=== PATIENT | male | born 1970 | race Caucasian/White ===

== ENCOUNTER 2022-11-17 20:46 | Inpatient (IN) | payer MEDICAID, SELFPAY ==
[2022-11-17] VITALS (23 sets, daily range): BP systolic 141–174; BP diastolic 100–125; PULSE 81–114; RESP 16; TEMP 36.7; O2SAT 95–99; BMI 27.1
--- NOTE | 2022-11-17 20:59 | CT_ITS ---
Final Report Patient: HARPAL CLARKE Facility:?[facility] Patient ID:?[id number] Site Patient ID:?[id number]. Site :?[id number] Study:?CT Head Angio w/ 95cc [id number]/27/2023 9:46:31 PM Ordering Physician:?Kortney Arceo Final Report: INDICATION: Acute stroke, dysarthria, altered mental status. TECHNIQUE: CTA head with contrast bolus tracking and 3D MIP reconstruction. FINDINGS: There is normal opacification of the intracranial vasculature. There is no large vessel occlusion. No aneurysm is identified. IMPRESSION: Unremarkable head CTA. Please note that all CT scans at this facility use dose modulation, iterative reconstruction, and/or weight-based dosing when appropriate to reduce radiation dose to as low as reasonably achievable. Dictated by Jayson Baez MD @ 11/18/2022 7:30:41 AM (Electronic Signature)
--- NOTE | 2022-11-17 20:59 | CRLHL7_ITS ---
For Patients: As a result of the Century Cures Act, medical imaging exams and procedure reports are released immediately into your electronic medical record. You may view this report before your referring provider. If you have questions, please contact your health care provider. INDICATION: Acute stroke, dysarthria, altered mental status. TECHNIQUE: CTA neck with contrast bolus tracking and 3D MIP reconstruction. FINDINGS: There is no significant carotid artery stenosis or dissection. There is no significant vertebral artery stenosis or dissection. The soft tissues of the neck are within normal limits. The cervical spine is in normal alignment. Degenerative changes are noted in the cervical spine. IMPRESSION: No significant carotid or vertebral artery stenosis or dissection. Please note that all CT scans at this facility use dose modulation, iterative reconstruction, and/or weight-based dosing when appropriate to reduce radiation dose to as low as reasonably achievable. Dictated by Jayson Baez MD @ 11/18/2022 7:31:16 AM (Electronically Signed)
--- NOTE | 2022-11-17 20:59 | CRLHL7_ITS ---
For Patients: As a result of the Century Cures Act, medical imaging exams and procedure reports are released immediately into your electronic medical record. You may view this report before your referring provider. If you have questions, please contact your health care provider. INDICATION: Dysarthria over the past several days. Altered mental status. COMPARISON: None available. TECHNIQUE: CT examination of the head was performed with 3 mm thick axial and 2 mm thick coronal and sagittal sections without intravenous contrast. Images were obtained from the vertex of the skull through the skull base, and I examined the images with the brain and bone windows. Please note that all CT scans at this facility use dose modulation, iterative reconstruction, and/or weight-based dosing when appropriate to reduce radiation dose to as low as reasonably achievable. FINDINGS: : There is a relatively well-defined area of edema in the left mid-anterior parietal cortex and subcortical white matter, without evidence of hemorrhage or mass effect, consistent with an acute or subacute small left high mid-anterior MCA infarct. There is no sign of any high-density in the associated left MCA. There is an old lacunar infarct in the anterior medial right thalamus. Another old lacunar infarct is seen in the anterior lateral left thalamus. Old lacunar infarction is seen in the anterior limb of the internal capsule on the left. There is moderate dilatation of the ventricles and sulci representing moderate, age-appropriate atrophy. The cortical atrophy is quite pronounced in the posterior superior parietal lobes, raising the possibility of posterior cortical atrophy. The rest of the brain is normal in appearance for the patient`s age on today`s study, with no sign of mass lesion, mass effect, hemorrhage, or additional edema. Incidental note is made of a partially empty sella, a common finding in a patient of this age. The visualized portions of the orbits are normal in appearance. The visualized portions of the paranasal sinuses and mastoids are clear. The osseous structures are normal in their appearance with no sign of abnormality in the skull base or calvarium. I discussed findings of small acute versus subacute infarct in the left MCA territory with Dr. Sheets at 2151 hours on 11/17/2022. IMPRESSION: Acute or subacute small left distal mid-anterior MCA infarct with no sign of hemorrhage or mass effect. Several old lacunar infarcts as described above. Moderate cerebral atrophy, with pronounced atrophy in the posterior parietal regions, raising the possibility of posterior cortical atrophy. Please note that all CT scans at this facility use dose modulation, iterative reconstruction, and/or weight-based dosing when appropriate to reduce radiation dose to as low as reasonably achievable. Dictated by Nestor Sanders MD @ 11/17/2022 9:54:17 PM (Electronically Signed)
[2022-11-17 21:07] LABS: HCO3 VBG 29 mmol/L (21-28); PCO2 VBG 51 mmHG (40-50); PO2 VBG 33.1 mmHG (25-47); pH VBG 7.355 (7.32-7.43)
[2022-11-17 21:09] LABS: Basophils Absolute Auto 0.02 K/uL (0.00-0.30); Basophils Percent Auto 0.2 % (0.0-3.0); Eosinophils Absolute Auto 0.13 K/uL (0.00-0.50); Eosinophils Percent Auto 1.2 % (0.0-7.0); Hematocrit 50.7 % (37.0-53.0); Hemoglobin* 16.7 gm/dL (13.5-17.5); Immature Granulocytes Abs Auto 0.02 K/uL (0.00-0.30); Immature Granulocytes Pct Auto 0.2 %; Lymphocytes Absolute Auto 3.14 K/uL (0.90-2.90); Lymphocytes Percent Auto 29.7 % (20-44); Mean Corpuscular HGB Conc 33 gm/dL (32-36); Mean Corpuscular Hemoglobin 30 pg (26-34); Mean Corpuscular Volume 91 fL (80-100); Monocytes Percent Auto 9.9 % (0.0-11.0); Neutrophils Absolute Auto 6.22 K/uL (1.7-7.0); Neutrophils Percent Auto 58.8 % (42.0-72.0); Platelet Count* 281 K/uL (140-440); RDW Coefficient of Variation % 12.7 % (11.5-15.5); Red Blood Count 5.56 m/uL (4.30-5.90); Slide Review Reflex No; White Blood Count* 10.58 K/uL (4.50-11.00)
[2022-11-17 21:24] LABS: Albumin* 4.4 g/dL (3.3-5.0); Chloride* 104 mmol/L (96-114)
[2022-11-17 21:25] LABS: Sodium* 138 mmol/L (135-149)
[2022-11-17 21:26] LABS: Potassium* 3.9 mmol/L (3.6-5.1)
[2022-11-17 21:27] LABS: Est. Creatinine Clearance* 95.92; Estimated Glomerular Filt Rate 91 ml/min
[2022-11-17 21:28] LABS: Alanine Aminotransferase* 27 U/L (4-50); Alkaline Phosphatase* 68 U/L (40-150); Aspartate Amino Transferase* 26 U/L (12-35); Bilirubin Direct* 0.3 mg/dL (0.0-0.5); Bilirubin Total* 0.5 mg/dL (0.1-1.5); Blood Urea Nitrogen* 17 mg/dL (7-30); Carbon Dioxide* 27 mmol/L (20-32); Glucose* 138 mg/dL (60-115); Total Protein* 7.8 g/dL (6.0-8.3)
[2022-11-17 21:29] LABS: Calcium* 9.4 mg/dL (8.4-10.6); Ethanol* < 0.01 % (0.01-0.03); Magnesium* 2.1 mg/dL (1.5-2.6)
[2022-11-17 21:31] LABS: C Reactive Protein* 0.7 mg/dL (0.5-1.0)
[2022-11-17 21:38] LABS: D Dimer Quantitative* 0.46 ug/ml (0.00-0.50)
[2022-11-17 21:44] LABS: NT Pro B Type NatriureticPept* 59 pg/mL; Troponin I* < 0.01 ng/mL (0.01-0.04)
[2022-11-17] MEDS: 0.9 % SODIUM CHLORIDE 1000 ml 1,000 ML IV (22:13)
--- NOTE | 2022-11-17 22:26 | ED.NURSE ---
Stroke neurology was paged through [employer]. Dr. Faust to phone back.
[2022-11-17 22:42] LABS: SARS PCR* Negative SARS-CoV-2 (Negative)
--- NOTE | 2022-11-17 22:46 | ED.GENADULT ---
HPI - General Adult General Chief complaint: Unspecified Complaint, Adult Stated complaint: Confused Trouble Speaking Time Seen by Provider: 11/17/22 20:58 History of Present Illness HPI narrative: 51-year-old man presenting to the emergency department accompanied by family with concern of decreased communication over the last probably 30 hours. Stroke code is activated on arrival here in the ER. There has been increased stress with family activities and at some point family they left him yesterday thinking that this was playing a role in how he was feeling as well as a flare of his sciatica. Concern was expressed that he was upset with family not communicating with them. Returned to find him leaning over maybe slumped on the couch. Mr. Rashid does not elaborate much on his symptoms with clear difficulty with communication. Is demonstrating some degree of expressive aphasia and/or dysarthria on arrival. He is denying any pain other than acknowledging back/leg pain. No recent trauma. He does smoke. Denies other ingestions. No fever. ?we don't go to doctors? as phrased by family. He has however had a left hip replacement and is to follow-up for that. Related Data Home Medications Medication Instructions Recorded Confirmed ibuprofen 100 - 200 mg PO Q8H PRN 11/17/22 11/18/22 Allergies Allergy/AdvReac Type Severity Reaction Status Date / Time No Known Drug Allergies Allergy Verified 11/17/22 21:53 Review of Systems Status of ROS: Reports: 6 or more systems reviewed and unremarkable except as noted in History and below PFSH FOR[facility] Medical History Cigarette smoker one half pack a day or less ?F17.210 - Nicotine dependence, cigarettes, uncomplicated (ICD-10) History of lacunar cerebrovascular accident ?Z86.73 - Personal history of transient ischemic attack (TIA), and cerebral infarction without residual deficits (ICD-10) Osteoarthritis ?M19.90 - Unspecified osteoarthritis, unspecified site (ICD-10) Surgical History History of hip replacement, total ?Z96.649 - Presence of unspecified artificial hip joint (ICD-10) Social History Highest level of school completed/degree received: 12th grade, no diploma Smoking Status: Current every day smoker What tobacco products do you use: cigarettes Smoking packs per day: 0.5 Smoking cigarettes per day: 10.0 Years smoked: 30 Smoking pack-years: 15.00 Do you use any of these nicotine containing products: None Second hand tobacco smoke exposure: No How often do you have a drink containing alcohol: never AUDIT-C Alcohol total score: 0 Non-prescribed substance use: marijuana (any form) Caffeine: Yes service: No Exam Narrative: Exam Narrative: Quiet. NAD. GCS 15. Breathing easily, supporting own airway. Smells strongly of cigarette smoke. He does appear little slowed in communication. There is subtle dysarthria and certainly some degree of expressive aphasia. Able to follow commands without difficulty. NIH stroke scale I would estimate to be 2. Cranial nerves 2-12 otherwise appear to be intact. No sensory loss evident. Seems to prefer to gaze down to the left but clearly not exclusive. Oropharynx is little sticky, hyperemic. He is moving all extremities without difficulty. Well perfused. Head is atraumatic. Neck is supple nontender. Back nontender without deformity. Heart with elevated rate but in a regular rhythm. Abdomen is soft and nontender. Skin warm and dry without evidence of injury or rash. Const: Vital Signs, click to edit/add: Vital Signs - 24 hr 11/17/22 20:50 11/17/22 20:47 11/17/22 20:58 Temperature 98.1 F Pulse Rate Pulse Rate [Left R adial] 100 Pulse Rate [Pulse Oximeter] 109 H Respiratory Rate 16 Blood Pressure Blood Pressure [Le ft Upper Arm] 174/125 H Blood Pressure [Ri ght Arm] Pulse Oximetry 98 96 Oxygen Delivery Me thod Room Air 11/17/22 20:58 11/17/22 20:59 11/17/22 21:01 Temperature Pulse Rate 112 H 112 H 114 H Pulse Rate [Left R adial] Pulse Rate [Pulse Oximeter] Respiratory Rate Blood Pressure 165/106 H 159/102 H Blood Pressure [Le ft Upper Arm] Blood Pressure [Ri ght Arm] Pulse Oximetry 97 97 97 Oxygen Delivery Me thod 11/17/22 21:02 11/17/22 21:35 11/17/22 21:38 Temperature Pulse Rate 113 H 97 99 Pulse Rate [Left R adial] Pulse Rate [Pulse Oximeter] Respiratory Rate Blood Pressure 155/111 H Blood Pressure [Le ft Upper Arm] Blood Pressure [Ri ght Arm] Pulse Oximetry 96 97 98 Oxygen Delivery Me thod 11/17/22 21:59 11/17/22 22:00 11/17/22 22:01 Temperature Pulse Rate 94 86 89 Pulse Rate [Left R adial] Pulse Rate [Pulse Oximeter] Respiratory Rate Blood Pressure 144/103 H Blood Pressure [Le ft Upper Arm] Blood Pressure [Ri ght Arm] Pulse Oximetry 98 98 97 Oxygen Delivery Me thod 11/17/22 22:02 11/17/22 22:15 11/17/22 22:16 Temperature Pulse Rate 88 89 92 Pulse Rate [Left R adial] Pulse Rate [Pulse Oximeter] Respiratory Rate Blood Pressure 144/100 H Blood Pressure [Le ft Upper Arm] Blood Pressure [Ri ght Arm] Pulse Oximetry 97 99 98 Oxygen Delivery Ia thod 11/17/22 22:30 11/17/22 22:31 11/17/22 21:30 Temperature Pulse Rate 85 87 Pulse Rate [Left R adial] 100 Pulse Rate [Pulse Oximeter] Respiratory Rate Blood Pressure 146/103 H Blood Pressure [Le ft Upper Arm] Blood Pressure [Ri ght Arm] Pulse Oximetry 98 98 Oxygen Delivery Me thod 11/17/22 23:09 11/17/22 22:32 11/17/22 22:45 Temperature Pulse Rate 87 81 Pulse Rate [Left R adial] 100 Pulse Rate [Pulse Oximeter] Respiratory Rate Blood Pressure Blood Pressure [Le ft Upper Arm] Blood Pressure [Ri ght Arm] Pulse Oximetry 98 97 Oxygen Delivery Me thod 11/17/22 22:46 11/17/22 23:00 11/17/22 23:01 Temperature Pulse Rate 83 82 90 Pulse Rate [Left R adial] Pulse Rate [Pulse Oximeter] Respiratory Rate Blood Pressure 144/100 H 141/102 H Blood Pressure [Le ft Upper Arm] Blood Pressure [Ri ght Arm] Pulse Oximetry 98 95 98 Oxygen Delivery Ia thod 11/18/22 00:00 11/18/22 00:01 11/18/22 03:00 Temperature 98.1 F 98.4 F Pulse Rate 73 Pulse Rate [Left R adial] 85 76 Pulse Rate [Pulse Oximeter] Respiratory Rate 18 18 Blood Pressure Blood Pressure [Le ft Upper Arm] Blood Pressure [Ri ght Arm] 130/89 119/77 Pulse Oximetry 96 96 Oxygen Delivery Me thod Room Air Room Air 11/18/22 07:51 11/18/22 08:24 11/18/22 08:26 Temperature 98.1 F Pulse Rate 74 Pulse Rate [Left R adial] 74 Pulse Rate [Pulse Oximeter] Respiratory Rate 16 16 Blood Pressure Blood Pressure [Le ft Upper Arm] Blood Pressure [Ri ght Arm] 135/93 H Pulse Oximetry 96 Oxygen Delivery Me thod Room Air 11/18/22 08:26 Temperature Pulse Rate Pulse Rate [Left R adial] Pulse Rate [Pulse Oximeter] Respiratory Rate Blood Pressure Blood Pressure [Le ft Upper Arm] Blood Pressure [Ri ght Arm] Pulse Oximetry 96 Oxygen Delivery Me thod Room Air Course Vital Signs Vital signs: Initial Vital Signs Pulse Rate 100 11/17/22 20:47 Pulse Rhythm Regular 11/17/22 20:47 Pulse Strength 3+ Normal 11/17/22 20:47 Vital Signs Pulse Rate 100 11/17/22 20:47 Temperature 99.0 F 11/18/22 11:35 Pulse Rate 85 11/18/22 11:35 Respiratory Rate 14 11/18/22 11:35 Blood Pressure 137/92 H 11/18/22 11:35 Pulse Oximetry 95 11/18/22 11:35 Oxygen Delivery Method Room Air 11/18/22 11:35 Medical Decision Making MDM Narrative Medical decision making narrative: Symptoms certainly could be from stress or metabolic abnormality. Does not appear to be infectious etiology. Drug ingestion could look similar as well and given that he has been dealing with pain, overdose is of potential concern. Environmental or toxic exposure otherwise. Leading concern though would be cerebrovascular event. Primary risk factor seems to be smoking. Ordered stroke protocol for head and neck imaging. IV initiated receiving normal saline. Is noted to be somewhat hypertensive on arrival. Given low stroke scoring and being along with symptoms; doubtful intervention if present. I did review initial head CT without which is without evidence of acute bleed. Proceeding then with IV contrasted scans. I do receive a call from Radiology with evidence of left parietal stroke, probably subacute. I review these images as well. Symptoms are consistent with location of most recent insult. Over-read as below IMPRESSION: Acute or subacute small left distal mid-anterior MCA infarct with no sign of hemorrhage or mass effect. Several old lacunar infarcts as described above. Moderate cerebral atrophy, with pronounced atrophy in the posterior parietal regions, raising the possibility of posterior cortical atrophy. Discuss these symptoms with Stroke Neuro on-call for [facility] Dr. Faust. I have ordered for singular aspirin dosing. Otherwise recommending longer term evaluation for arrhythmia, MRI head. BORIS or TTE with bubble. Control of blood pressure. Admission for monitoring and further workup as noted above. EKG without arrhythmia-in normal sinus by my review. I discussed all findings and diagnoses with Mr. Rashid and family. Blood pressures just in goal at this time. Discussed case with hospitalist who is admitting for further cares and evaluation. Lab Data Lab results reviewed: Yes I reviewed the patient's lab results Labs: Lab Results 11/17/22 11/17/22 11/18/22 Range/Units 20:55 21:45 05:56 WBC 10.58 (4.50-11.00) K/uL RBC 5.56 (4.30-5.90) m/uL Hgb 16.7 (13.5-17.5) gm/dL Hct 50.7 (37.0-53.0) % MCV 91 (80-100) fL MCH 30 (26-34) pg MCHC 33 (32-36) gm/dL RDW Coeff of Gracie 12.7 (11.5-15.5) % Plt Count 281 (140-440) K/uL Neut % (Auto) 58.8 (42.0-72.0) % Lymph % (Auto) 29.7 (20-44) % Kimball % (Auto) 9.9 (0.0-11.0) % Eos % (Auto) 1.2 (0.0-7.0) % Baso % (Auto) 0.2 (0.0-3.0) % Neut # (Auto) 6.22 (1.7-7.0) K/uL Lymph # (Auto) 3.14 H (0.90-2.90) K/uL Kimball # (Auto) 1.00 H (0.00-0.90) K/UL Eos # (Auto) 0.13 (0.00-0.50) K/uL Baso # (Auto) 0.02 (0.00-0.30) K/uL D-Dimer Quant (PE/DVT) 0.46 (0.00-0.50) ug/ml VBG pH 7.355 (7.32-7.43) VBG pCO2 51 H (40-50) mmHG VBG pO2 33.1 (25-47) mmHG VBG HCO3 29 H (21-28) mmol/L Sodium 138 (135-149) mmol/L Potassium 3.9 (3.6-5.1) mmol/L Chloride 104 (96-114) mmol/L Carbon Dioxide 27 (20-32) mmol/L BUN 17 (7-30) mg/dL Creatinine 1.0 (0.5-1.5) mg/dL Estimated Creat Clear 95.92 Estimated GFR 91 ml/min Glucose 138 H (60-115) mg/dL Hemoglobin A1c 5.48 (0-5.6) % Calcium 9.4 (8.4-10.6) mg/dL Magnesium 2.1 (1.5-2.6) mg/dL Total Bilirubin 0.5 (0.1-1.5) mg/dL Direct Bilirubin 0.3 (0.0-0.5) mg/dL AST 26 (12-35) U/L ALT 27 (4-50) U/L Alkaline Phosphatase 68 (40-150) U/L Ammonia 13.0 L (13.1-30.0) umol/L Troponin I < 0.01 L (0.01-0.04) ng/mL C-Reactive Protein 0.7 (0.5-1.0) mg/dL NT-Pro-B Natriuret Pep 59 pg/mL Total Protein 7.8 (6.0-8.3) g/dL Albumin 4.4 (3.3-5.0) g/dL Triglycerides 91 (40-149) mg/dL Cholesterol 175 (90-199) mg/dL LDL Cholesterol, Calc 105 H (<100) mg/dL HDL Cholesterol 52 (>=40) mg/dL TSH 2.160 (0.270-4.20) uIU/mL Ethyl Alcohol < 0.01 L (0.01-0.03) % SARS-CoV-2 (PCR) Negative SARS-CoV-2 (Negative) ECG Data Attestation: I personally reviewed and interpreted this ECG as follows: (Normal sinus rhythm rate of 96) Critical Care Time Critical Care Time Total Critical Care Time in Minutes: 45 Discharge Plan Discharge Clinical Impression: Ischemic cerebrovascular accident (CVA) Patient Disposition: Admitted As Inpatient Condition: Stable
--- NOTE | 2022-11-17 23:38 | PM.IMHP1 ---
Hospitalist- H&P: HPI History of Present Illness Time Seen by Provider: 23:15 Date Seen: 11/17/22 Chief complaint: Confused Trouble Speaking Narrative: Farrukh Rashid is a 51 year old right-handed man with a 2 day history of receptive and expressive aphasia. He believes it may have started yesterday afternoon or evening. He finally became scared and ask family to bring him in. Lives with his brother and sister. Sister thought he was mad at her and therefore not speaking with her. It was not until later today that she realized ?he seemed not to be thinking right.? Denies trauma or injury. Denies headache. Denies other focal motor neurologic deficits. Able to eat and drink. Review of Systems Status of ROS: Reports: 10 or more systems reviewed and unremarkable except as noted in History and below Narrative: Denies any other focal motor neurologic deficits. Denies change in vision, diplopia. Able to get up and move about without difficulties. No lateralization symptoms. Denies palpitations or chest fluttering. Denies syncope or near-syncope. Denies chest heaviness, pressure, tightness, or pain. Denies cough, shortness of breath, paroxysmal nocturnal dyspnea, orthopnea. Denies edema. Denies bowel or bladder concerns. No recent illness, travel, fevers, rigors, diaphoresis. No night sweats. No weight gain or weight loss. No trauma or injury. No blood loss. Does not see physicians at all. Last time he saw physician was about 3 to 5 years ago when he had a hip replacement. Has wanted to have his other hip replaced as well but has been scared to do so because of COVID. 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 Work will start again in mid November. Lives with brother and sister. Smokes 1/2 pack cigarettes daily for more than 35 years. Drinks 1 beer every other day. Uses marijuana at times. Denies any other street or recreational drugs. Requests full resuscitation event of cardiopulmonary demise. Designates brother and sister has power of corporate associate attorney for health should that be required. [facility] Medical History Cigarette smoker one half pack a day or less ?F17.210 - Nicotine dependence, cigarettes, uncomplicated (ICD-10) History of lacunar cerebrovascular accident ?Z86.73 - Personal history of transient ischemic attack (TIA), and cerebral infarction without residual deficits (ICD-10) Osteoarthritis ?M19.90 - Unspecified osteoarthritis, unspecified site (ICD-10) Surgical History History of hip replacement, total ?Z96.649 - Presence of unspecified artificial hip joint (ICD-10) Social History Smoking Status: Current every day smoker What tobacco products do you use: cigarettes Smoking packs per day: 0.5 Smoking cigarettes per day: 10.0 Years smoked: 30 Smoking pack-years: 15.00 Do you use any of these nicotine containing products: None Second hand tobacco smoke exposure: No How often do you have a drink containing alcohol: never AUDIT-C Alcohol total score: 0 Non-prescribed substance use: marijuana (any form) Meds Home Medications and Allergies Home Medications Medication Instructions Recorded Confirmed Type ibuprofen .ROUTE 11/17/22 History Allergies Allergy/AdvReac Type Severity Reaction Status Date / Time No Known Drug Allergies Allergy Verified 11/17/22 21:53 Exam Narrative: Exam Narrative: Laying comfortably on exam table in the emergency department. Smells strongly of tobacco. Alert, oriented to self, place, time, situation. Appears frightened. Friendly. Facial symmetry. Minimal spontaneous conversation. Slow to respond to questions. Were difficulty finding. Vision and hearing are grossly normal. Pupils are equal and reactive to light and accommodation. Extraocular muscles are intact. Able to articulate pa, ta, ka separately as well as into great these sounds. Able to swallow without difficulties. Gag reflex intact. Neck is supple. Midline trachea. Normal thyroid. No JVD hepatojugular reflux. No carotid bruits. Lungs are clear to auscultation. No wheezing, rhonchi, or rales. Chest wall excursions are full. No CVA tenderness. Heart tones with regular rhythm, normal S1-S2, without murmur, gallop, or rub. Abdomen with active bowel sounds, soft, nontender. Extremities without edema. Strength full in upper and lower extremities. Deep tendon reflexes are mildly decreased globally. Independent in transfer, station, and gait. Has an antalgic gait. He tells me this is from his arthritis of his hip that still needs to be replaced. No tremor, asterixis, or ataxia. Normal rapid alternating movements of upper and lower extremities. Const: Vital Signs, click to edit/add: Vital Signs - 24 hr 11/17/22 20:50 11/17/22 20:47 11/17/22 20:58 Temperature 98.1 F Pulse Rate Pulse Rate [Left R adial] 100 Pulse Rate [Pulse Oximeter] 109 H Respiratory Rate 16 Blood Pressure Blood Pressure [Le ft Upper Arm] 174/125 H Pulse Oximetry 98 96 Oxygen Delivery Me od Room Air 11/17/22 20:58 11/17/22 20:59 11/17/22 21:01 Temperature Pulse Rate 112 H 112 H 114 H Pulse Rate [Left R adial] Pulse Rate [Pulse Oximeter] Respiratory Rate Blood Pressure 165/106 H 159/102 H Blood Pressure [Le ft Upper Arm] Pulse Oximetry 97 97 97 [facility] 11/17/[facility] 21:02 11/17/22 21:35 11/17/22 21:38 Temperature Pulse Rate 113 H 97 99 Pulse Rate [Left R adial] Pulse Rate [Pulse Oximeter] Respiratory Rate Blood Pressure 155/111 H Blood Pressure [Le ft Upper Arm] Pulse Oximetry 96 97 98 Oxygen Delivery Me od 11/17/22 21:59 11/17/22 22:00 11/17/22 22:01 Temperature Pulse Rate 94 86 89 Pulse Rate [Left R adial] Pulse Rate [Pulse Oximeter] Respiratory Rate Blood Pressure 144/103 H Blood Pressure [Le ft Upper Arm] Pulse Oximetry 98 98 97 Oxygen Delivery Mi thod 11/17/22 22:02 11/17/22 22:15 11/17/22 22:16 Temperature Pulse Rate 88 89 92 Pulse Rate [Left R adial] Pulse Rate [Pulse Oximeter] Respiratory Rate Blood Pressure 144/100 H Blood Pressure [Le ft Upper Arm] Pulse Oximetry 97 99 98 [facility] 11/17/22 22:30 11/17/22 22:31 11/17/22 21:30 Temperature Pulse Rate 85 87 Pulse Rate [Left R adial] 100 Pulse Rate [Pulse Oximeter] Respiratory Rate Blood Pressure 146/103 H Blood Pressure [Le ft Upper Arm] Pulse Oximetry 98 98 [facility] 11/17/22 23:09 Temperature Pulse Rate Pulse Rate [Left R adial] 100 Pulse Rate [Pulse Oximeter] Respiratory Rate Blood Pressure Blood Pressure [Le ft Upper Arm] Pulse Oximetry Oxygen Delivery Me thod Documenting provider has reviewed patient's vital signs: yes Hospitalist - H&P: Result Labs Labs: Short CBC 11/17/22 Range/Units 20:55 WBC 10.58 (4.50-11.00) K/uL Hgb 16.7 (13.5-17.5) gm/dL Hct 50.7 (37.0-53.0) % Plt Count 281 (140-440) K/uL BMP 11/17/22 20:55 Sodium 138 Potassium 3.9 Chloride 104 Carbon Dioxide 27 BUN 17 Creatinine 1.0 Glucose 138 H Calcium 9.4 Cardiac Enzymes 11/17/22 Range/Units 20:55 Troponin I < 0.01 L (0.01-0.04) ng/mL Liver Function 11/17/22 Range/Units 20:55 Total Bilirubin 0.5 (0.1-1.5) mg/dL Direct Bilirubin 0.3 (0.0-0.5) mg/dL AST 26 (12-35) U/L ALT 27 (4-50) U/L Alkaline Phosphatase 68 (40-150) U/L Albumin 4.4 (3.3-5.0) g/dL ECG Attestation: I personally reviewed and interpreted this ECG as follows: ECG interpretation date: 11/17/22 ECG interpretation time: 23:35 Prior ECG tracings: not available for review Interpretation: Normal sinus rhythm. No ischemic changes. No dysrhythmia. Imaging CT scan - head: Attestation: I have reviewed the pertinent imaging results. Radiologist's impression: FINDINGS: : There is a relatively well-defined area of edema in the left mid-anterior parietal cortex and subcortical white matter, without evidence of hemorrhage or mass effect, consistent with an acute or subacute small left high mid-anterior MCA infarct. There is no sign of any high-density in the associated left MCA. There is an old lacunar infarct in the anterior medial right thalamus. Another old lacunar infarct is seen in the anterior lateral left thalamus. Old lacunar infarction is seen in the anterior limb of the internal capsule on the left. There is moderate dilatation of the ventricles and sulci representing moderate, age-appropriate atrophy. The cortical atrophy is quite pronounced in the posterior superior parietal lobes, raising the possibility of posterior cortical atrophy. The rest of the brain is normal in appearance for the patient`s age on today`s study, with no sign of mass lesion, mass effect, hemorrhage, or additional edema. Incidental note is made of a partially empty sella, a common finding in a patient of this age. The visualized portions of the orbits are normal in appearance. The visualized portions of the paranasal sinuses and mastoids are clear. The osseous structures are normal in their appearance with no sign of abnormality in the skull base or calvarium. I discussed findings of small acute versus subacute infarct in the left MCA territory with Dr. Sheets at 2151 hours on 11/17/2022. IMPRESSION: Acute or subacute small left distal mid-anterior MCA infarct with no sign of hemorrhage or mass effect. Several old lacunar infarcts as described above. Moderate cerebral atrophy, with pronounced atrophy in the posterior parietal regions, raising the possibility of posterior cortical atrophy. Please note that all CT scans at this facility use dose modulation, iterative reconstruction, and/or weight-based dosing when appropriate to reduce radiation dose to as low as reasonably achievable. CT angiogram head and neck: Radiologist's impression: No reported stenosis, aneurysm. Assessment and Plan Assessment and plan (1) Acute ischemic left MCA stroke: Problem comment: CT : Acute/subacute small left distal mid-anterior MCA stroke Status: Acute (2) History of lacunar cerebrovascular accident: Problem comment: CT 11/17/2022: Old lacunar strokes, including anterior medial right thalamus, anterior lateral left thalamus, anterior limb of left internal capsule. Status: Acute (3) Cigarette smoker one half pack a day or less: Problem comment: 1/2 pack per day for over 35 years Status: Acute Plan 1. Reviewed case with Dr. Hensley, emergency department physician. He spoke with Dr. Keane, stroke neurologist, who recommended admission to observation, telemetry, echo, physical therapy, occupational therapy, speech therapy, aspirin, statin. Recommended permissive hypertension. Consider longer-term rhythm assessment. Consider possible transesophageal echo if warranted. 2. Reviewed with patient and his sister who accompanies him. They are agreeable to above stated plans and recommendations. 3. He received aspirin 325 mg 1 dose in the emergency department. We initiate aspirin 81 mg once daily starting tomorrow. 4. Obtain fasting lipid panel in the morning. Start atorvastatin. 5. Nicotine patch 14 mg once daily plus Nicotrol inhaler as needed. 6. Will need to establish primary care for follow-up hereafter. 7. Check TSH and hemoglobin A1c. 8. Answered patient's and sister's questions to their satisfaction.
[2022-11-18] VITALS (11 sets, daily range): BP systolic 119–137; BP diastolic 77–93; PULSE 73–748; RESP 14–18; TEMP 36.6–37.2; O2SAT 95–97; BMI 27.1
--- NOTE | 2022-11-18 00:01 | CRLHL7_ITS ---
For Patients: As a result of the Century Cures Act, medical imaging exams and procedure reports are released immediately into your electronic medical record. You may view this report before your referring provider. If you have questions, please contact your health care provider. INDICATION: Acute stroke. TECHNIQUE: Brain MRI without contrast. The following sequences were obtained: Sagittal T1 weighted sequence. DWI and ADC mapping sequences. Axial FLAIR and RAMO T2 weighted sequences. Susceptibility or GRE sequence. COMPARISON: Head CT from 11/17/2022. FINDINGS: There is a 24 x 39 millimeter region diffusion restriction/FLAIR hyperintensity within the left middle frontal gyrus compatible with a late acute/early subacute transcortical infarct. A few tiny surrounding acute/subacute infarcts are also present. No associated blood products to suggest hemorrhagic transformation. No acute ischemia or intracranial hemorrhage elsewhere within the brain. Small chronic infarcts within the bilateral thalami. Scattered FLAIR hyperintense foci within the supratentorial white matter, typical for chronic microvascular ischemic change. No mass effect or herniation. No hydrocephalus or extra-axial collections. The pituitary gland, parasellar structures and optic chiasm are normal. Patchy T2 hyperintensities within the brainstem, typical for chronic microvascular ischemic change. Small chronic infarct right posterior cerebellum. All the major intracranial vascular structures demonstrate normal flow-related signal. The orbital contents are normal. No calvarial or skull base marrow replacing process. Scattered sites of mild paranasal sinus mucosal thickening. No extracranial soft tissue findings. IMPRESSION: 1. 39 millimeter late acute/early subacute transcortical infarct within the left middle frontal gyrus. No hemorrhagic transformation. This infarct does involve the left superior MCA territory. No recent ischemia elsewhere within the brain. 2. Small chronic infarcts bilateral thalami and right cerebellum. Overall mild chronic microvascular ischemic changes. Dictated by Bayron Ryan MD @ 11/18/2022 9:29:21 AM (Electronically Signed)
[2022-11-18] MEDS: ASPIRIN EC 325 MG TABLET PO (00:35)
[2022-11-18] MEDS: NICOTINE 14 mg PATCH 1 PATCH TRANSDERMA ×2 (01:09→09:37)
[2022-11-18 06:22] LABS: Hemoglobin A1C* 5.48 % (0-5.6)
[2022-11-18 06:30] LABS: Cholesterol* 175 mg/dL (90-199); HDL Cholesterol* 52 mg/dL (>=40); LDL Cholesterol Calculated 105 mg/dL (<100); Triglycerides* 91 mg/dL (40-149)
--- NOTE | 2022-11-18 06:40 | PC.NURSE ---
Shift note: Pt arrived at the facility at 2345 on a wheelchair accompanied by ED staff. Pt was concern about the inability to verbalized as he use to be. V/S were stable on arrival. Alert but occasional confusion noted. CMS intact in both upper and lower extremities and equal amount of strength noted in the extremities. Denied pain, dizziness, SOB N/V. Pt had adequate sleep. O2 >90 on room air throughout the shift. Pt is steady on both feet except that he has been limping due to past hip surgery.
[2022-11-18] MEDS: LORazepam 2 MG/ML inj 1 MG IVP (08:18)
[2022-11-18] MEDS: ASPIRIN 81 MG TABLET EC PO (09:36)
[2022-11-18] MEDS: ENOXAPARIN 40 MG/0.4 ML INJ SUBCUT (09:37)
[2022-11-18] MEDS: SODIUM CHLORIDE 0.9 % (FLUSH) 10 ML SYRINGE 5 ML IVF ×2 (09:38→21:22)
--- NOTE | 2022-11-18 10:21 | PM.IMPN1 ---
Progress Note: A&P Assessment and plan (1) Acute ischemic left MCA stroke: Problem details: -aspirin load with daily 81 mg aspirin -statin started, lipitor 40mg hs -not diabetic, not hypertensive, lipids normal -heavy smoker -expressive aphasia obvious -continue with speech, PT OT evaluations -echo today MRI 11/18/2022 39 millimeter late acute/early subacute transcortical infarct within the left middle frontal gyrus. No hemorrhagic transformation. This infarct does involve the left superior MCA territory. Status: Acute (2) History of lacunar cerebrovascular accident: Problem details: CT 11/17/2022: Old lacunar strokes, including anterior medial right thalamus, anterior lateral left thalamus, anterior limb of left internal capsule. Status: Acute (3) Cigarette smoker one half pack a day or less: Problem details: 1/2 pack per day for over 35 years Status: Acute Subjective Date Seen: 11/18/22 Interval history: Daily Progress Note - Hospital Medicine Day #: 2 CC: Left MCA subacute CVA resulting in expressive aphasia, heavy tobacco use. OVERNIGHT UPDATES FROM STAFF & MED, LAB, IMAGING UPDATES Afebrile. 135/93. Pulse rate 74. Respiratory rate 16, unlabored. Pulse ox 96% on room air. Admission labs reviewed. CBC unremarkable. Normal pH. Mild CO2 retention. At 51. Unremarkable CMP A1c 5.5 Ammonia level 13. Normal cholesterol Alcohol undetected Negative SARS-CoV-2 Negative troponin Blood culture x2 if today. ECG shows NSR Brain MRI 1. 39 millimeter late acute/early subacute transcortical infarct within the left middle frontal gyrus. No hemorrhagic transformation. This infarct does involve the left superior MCA territory. No recent ischemia elsewhere within the brain. 2. Small chronic infarcts bilateral thalami and right cerebellum. Overall mild chronic microvascular ischemic changes. Objective: tired, disshelved. NAD. Vitals: see above Lungs: Clear. Cardiac: S1S2. Neuro: CN 2-12 intact. delay in initation of speech. no slurring. no facial assymetry. no focal weakness. headley to heel, finger to nose all normal. somewhat flat affect with tears. did make a couple of jokes. gait not observed. Disposition/Potential discharge - Likely to return to previous living situation. Total time is 35 minutes with greater than 50% spent in counseling and coordination of care. Exam Const: Vital Signs, click to edit/add: Vital Signs - 24 hr 11/17/22 20:50 11/17/22 20:47 11/17/22 20:58 Temperature 98.1 F Pulse Rate Pulse Rate [Left R adial] 100 Pulse Rate [Pulse Oximeter] 109 H Respiratory Rate 16 Blood Pressure Blood Pressure [Le ft Upper Arm] 174/125 H Blood Pressure [Ri ght Arm] Pulse Oximetry 98 96 Oxygen Delivery Me thod Room Air 11/17/22 20:58 11/17/22 20:59 11/17/22 21:01 Temperature Pulse Rate 112 H 112 H 114 H Pulse Rate [Left R adial] Pulse Rate [Pulse Oximeter] Respiratory Rate Blood Pressure 165/106 H 159/102 H Blood Pressure [Le ft Upper Arm] Blood Pressure [Ri ght Arm] Pulse Oximetry 97 97 97 Oxygen Delivery Me thod 11/17/22 21:02 11/17/22 21:35 11/17/22 21:38 Temperature Pulse Rate 113 H 97 99 Pulse Rate [Left R adial] Pulse Rate [Pulse Oximeter] Respiratory Rate Blood Pressure 155/111 H Blood Pressure [Le ft Upper Arm] Blood Pressure [Ri ght Arm] Pulse Oximetry 96 97 98 Oxygen Delivery Me thod 11/17/22 21:59 11/17/22 22:00 11/17/22 22:01 Temperature Pulse Rate 94 86 89 Pulse Rate [Left R adial] Pulse Rate [Pulse Oximeter] Respiratory Rate Blood Pressure 144/103 H Blood Pressure [Le ft Upper Arm] Blood Pressure [Ri ght Arm] Pulse Oximetry 98 98 97 Oxygen Delivery Me thod 11/17/22 22:02 11/17/22 22:15 11/17/22 22:16 Temperature Pulse Rate 88 89 92 Pulse Rate [Left R adial] Pulse Rate [Pulse Oximeter] Respiratory Rate Blood Pressure 144/100 H Blood Pressure [Le ft Upper Arm] Blood Pressure [Ri ght Arm] Pulse Oximetry 97 99 98 Oxygen Delivery Me thod 11/17/22 22:30 11/17/22 22:31 11/17/22 21:30 Temperature Pulse Rate 85 87 Pulse Rate [Left R adial] 100 Pulse Rate [Pulse Oximeter] Respiratory Rate Blood Pressure 146/103 H Blood Pressure [Le ft Upper Arm] Blood Pressure [Ri ght Arm] Pulse Oximetry 98 98 Oxygen Delivery Me thod 11/17/22 23:09 11/17/22 22:32 11/17/22 22:45 Temperature Pulse Rate 87 81 Pulse Rate [Left R adial] 100 Pulse Rate [Pulse Oximeter] Respiratory Rate Blood Pressure Blood Pressure [Le ft Upper Arm] Blood Pressure [Ri ght Arm] Pulse Oximetry 98 [address] [facility] 11/17/[facility] 22:46 11/17/22 23:00 11/17/22 23:01 Temperature Pulse Rate 83 82 90 Pulse Rate [Left R adial] Pulse Rate [Pulse Oximeter] Respiratory Rate Blood Pressure 144/100 H 141/102 H Blood Pressure [Le ft Upper Arm] Blood Pressure [Ri ght Arm] Pulse Oximetry 98 95 98 Oxygen Delivery [facility] 11/18/22 00:00 11/18/22 00:01 11/18/22 03:00 Temperature 98.1 F 98.4 F Pulse Rate 73 Pulse Rate [Left R adial] 85 76 Pulse Rate [Pulse Oximeter] Respiratory Rate 18 18 Blood Pressure Blood Pressure [Le ft Upper Arm] Blood Pressure [Ri ght Arm] 130/89 119/77 Pulse Oximetry 96 96 Oxygen Delivery [facility] Room Air Room Air 11/18/22 07:51 11/18/22 08:24 11/18/22 08:26 Temperature 98.1 F Pulse Rate 74 Pulse Rate [Left R adial] 74 Pulse Rate [Pulse Oximeter] Respiratory Rate 16 16 Blood Pressure Blood Pressure [Le ft Upper Arm] Blood Pressure [Ri ght Arm] 135/93 H Pulse Oximetry 96 Oxygen Delivery [facility] Room Air 11/18/22 08:26 Temperature Pulse Rate Pulse Rate [Left R adial] Pulse Rate [Pulse Oximeter] Respiratory Rate Blood Pressure Blood Pressure [Le ft Upper Arm] Blood Pressure [Ri ght Arm] Pulse Oximetry 96 Oxygen Delivery [facility] Room Air Labs Labs: Laboratory Results - last 24 hr 11/17/22 11/17/22 11/18/22 20:55 21:45 05:56 WBC 10.58 RBC 5.56 Hgb 16.7 Hct 50.7 MCV 91 MCH 30 MCHC 33 RDW Coeff of Gracie 12.7 Plt Count 281 Neut % (Auto) 58.8 Lymph % (Auto) 29.7 [place] % (Auto) 9.9 Eos % (Auto) 1.2 Baso % (Auto) 0.2 Neut # (Auto) 6.22 Lymph # (Auto) 3.14 H [place] # (Auto) 1.00 H Eos # (Auto) 0.13 Baso # (Auto) 0.02 D-Dimer Quant (PE/DVT) 0.46 VBG pH 7.355 VBG pCO2 51 H VBG pO2 33.1 VBG HCO3 29 H Sodium 138 Potassium 3.9 Chloride 104 Carbon Dioxide 27 BUN 17 Creatinine 1.0 Estimated Creat Clear 95.92 Estimated GFR 91 Glucose 138 H Hemoglobin A1c 5.48 Calcium 9.4 Magnesium 2.1 Total Bilirubin 0.5 Direct Bilirubin 0.3 AST 26 ALT 27 Alkaline Phosphatase 68 Ammonia 13.0 L Troponin I < 0.01 L C-Reactive Protein 0.7 NT-Pro-B Natriuret Pep 59 Total Protein 7.8 Albumin 4.4 Triglycerides 91 Cholesterol 175 LDL Cholesterol, Calc 105 H HDL Cholesterol 52 TSH 2.160 Ethyl Alcohol < 0.01 L SARS-CoV-2 (PCR) Negative SARS-CoV-2
--- NOTE | 2022-11-18 11:29 | REH.OT ---
Orders received for OT eval and treat. Patient to MRI this am and given ativan prior. Patient will be seen by OT on 11/19/25
--- NOTE | 2022-11-18 11:52 | NUTR.NU ---
RD consult by . Met with patient and designated caregiver. Pt does not live with designated caregiver but she is over to his house often. Pt lives with his sister, brother and father. Pt and sister do most of evening cooking. Reviewed basics of Heart Healthy diet including focusing on lean meats, avoiding animal fats, decreasing sodium in diet from added salt and the salt added in processing foods. Also briefly discussed importance of weight management (not gaining) as a benefit to heart and joints. Pt was attentive and offered a few words of response. Caregiver asked appropriate questions and shared her knowledge which was correct. Written materials were provided to the patient including Heart Healthy Nutrition Therapy, Sodium-free Flavoring Tips, Heart Health cooking and Heart Healthy Shopping tips. These materials are from the AND Nutrition Care Manual. [facility] dietitian phone number provided to patient.
--- NOTE | 2022-11-18 17:42 | PC.NURSE ---
Patient noted to have slight right sided facial drooping on 1500 assessment. Patient having difficulty with word finding and having word salad. Answers not appropriate for questions asked. Patient also noted to have inappropriate expression to emotion, during frustrations with word finding patient was smiling. MD updated and rounded on patient, no new orders.
[2022-11-18] MEDS: ATORVASTATIN CALCIUM 40 MG TABLET PO (21:21)
[2022-11-19 03:00] VITALS: BP 126/95; PULSE 77; RESP 16; TEMP 36.5; O2SAT 95
--- NOTE | 2022-11-19 06:56 | PC.NURSE ---
Shift note: Patient has been doing well tonight. Ambulated independently to and from BR. Denied any pain or discomfort. Continue to have difficulty with verbal communication (delayed, difficulty finding words and aphasia) and mild confusion. CMS intact, ROM in both upper and lower extremities and equal strength. Vitally stable. No SOB, O2>90 on room air.
[2022-11-19 07:25] VITALS: PULSE 64
[2022-11-19 08:00] VITALS: BP 134/98; PULSE 76; RESP 16; TEMP 36.3; O2SAT 96
[2022-11-19] MEDS: ASPIRIN 81 MG TABLET EC PO (09:08)
[2022-11-19] MEDS: ENOXAPARIN 40 MG/0.4 ML INJ SUBCUT (09:08)
[2022-11-19] MEDS: MULTIVITAMIN/MINERALS 1 TABLET 1 TAB PO (09:10)
[2022-11-19] MEDS: NICOTINE 14 mg PATCH 1 PATCH TRANSDERMA (09:11)
[2022-11-19] MEDS: SODIUM CHLORIDE 0.9 % (FLUSH) 10 ML SYRINGE 5 ML IVF (09:16)
[2022-11-19] MEDS: CARBOXYMETHYLCELLULOSE (REFRESH PLUS) TEARS 1 DROP EYE-BOTH (09:18)
--- NOTE | 2022-11-19 10:53 | REH.OT ---
Orders received for OT eval and treat. Patient in bed with blankets over his head not wanting to engage with this therapist. Brother in room. Patient did answer 2 yes/no questions accurately. Patient moving I in bed. Anticipate no formal outpatient OT warranted.
--- NOTE | 2022-11-19 11:24 | PM.DS1 ---
DS: Providers Provider Date Seen: 11/19/22 Date of admission: 11/18/22 09:16 Primary care physician: Not a Local Provider Admitting Clinician: Parish Georges MD Consults: 11/18/22 00:01 Consult to Nutrition [CONS] Routine Comment: Reason for consult:: Miscellaneous Comment: Strokes Consult to Physical Therapy [CONS] Routine Comment: Reason(s) for PT Consult:: Evaluate and Treat Any Restrictions?:: No Restrictions Consult to [employer] [CONS] Routine Comment: Reason for Consult:: Discharge Planning Needs Consult to Speech Therapy [CONS] Routine Comment: Reason(s) for Speech Consult:: Speaking Difficulty Understanding Difficulty 11/18/22 00:04 Consult to Occupational Therapy [CONS] Routine Comment: Reason(s) for OT Consult:: Evaluate and Treat Any Restrictions?:: No Restrictions Attending Physician on discharge: Magalys Carmona MD Date of Discharge: 11/19/22 DS: Diagnosis Discharge Diagnosis (1) Acute ischemic left MCA stroke: Status: Acute Problem details: -symptoms: expressive aphasia, receptive aphasia most prominent symptoms. Emotional lability, slight right-sided facial droop are also present -daily 81 mg aspirin -atorvastatin initiated -not diabetic, not hypertensive, lipids normal -heavy smoker -echo normal MRI 11/18/2022 39 millimeter late acute/early subacute transcortical infarct within the left middle frontal gyrus. No hemorrhagic transformation. This infarct does involve the left superior MCA territory. -continue aspirin and Lipitor daily -outpatient speech therapy 2 to 3 times a week -follow-up with PCP to review symptoms, blood pressure monitoring, referral to stroke neuro (2) History of lacunar cerebrovascular accident: Status: Acute Problem details: CT 11/17/2022: Old lacunar strokes, including anterior medial right thalamus, anterior lateral left thalamus, anterior limb of left internal capsule. (3) Cigarette smoker one half pack a day or less: Status: Acute Problem details: 1/2 pack per day for over 35 years -smoking cessation stressed. Sent him home on nicotine patches, Nicotrol. PCP to consider Wellbutrin or Chantix, hip notice some DS: Summary Hospital Course Hospital Course: HOSPITALIST DISCHARGE SUMMARY ATTENDING PHYSICIAN: Magalys Carmona MD FINAL DIAGNOSIS: Acute left MCA cerebrovascular accident Tobacco use disorder HOSPITAL FOLLOWUP ISSUES: 1. Stroke neuro follow-up: Tele stroke instructed on aspirin, Lipitor. I would recommend outpatient evaluation and continuity of care with the stroke neurologist 2. Smoking cessation - PCP to address and reinforced 3. Occupational therapy - referred to [facility] for 2 to 3 times a week for his expressive aphasia REFERRALS WHILE ADMITTED: PT, OT, speech REFERRALS AFTER DISCHARGE: As above, stroke neuro, occupational therapy BRIEF HOSPITAL COURSE: Renaldo presented with expressive aphasia, receptive aphasia to our emergency room. With hypertensive. He was diagnosed with a left-sided MCA distribution subacute CVA. The onset of symptoms have been greater than 24 hours. We observed him for 24 hours. His MRI revealed no extension of his ischemic insult. He was evaluated by therapies he passed physical therapy and occupational therapy. His main symptoms of expressive, receptive aphasia and slight right facial droop and emotionally ability can be addressed as an outpatient. He was started on an aspirin load and continued on a baby aspirin daily. A statin was initiated. His biggest joshua will be smoking cessation. I spent time going over than need for this. I sent nicotine patches and inhalers to help with his cessation plan. He can follow-up with his PCP for Wellbutrin and or Chantix. SUBSTANTIVE NOTATIONS ON IMAGING, LAB, MICROBIOLOGY/PATHOLOGY STUDIES: CBCs unremarkable D-dimer was unremarkable A1c 5.48 Normal TSH Normal magnesium Undetectable troponin HDL 52, LDL 105, total cholesterol 175 Brain MRI 1. 39 millimeter late acute/early subacute transcortical infarct within the left middle frontal gyrus. No hemorrhagic transformation. This infarct does involve the left superior MCA territory. No recent ischemia elsewhere within the brain. 2. Small chronic infarcts bilateral thalami and right cerebellum. Overall mild chronic microvascular ischemic changes. DISCHARGE MEDICATIONS: See Reconciled list - SIGNIFICANT CHANGES: REVIEW OF SYSTEMS No new chest pain or dyspnea Pain controlled No voiding difficulties Tolerating diet challenge PHYSICAL EXAM: CONSTITUTIONAL: VITAL SIGNS: see record. HEENT: Normocephalic, atraumatic. PERRL, EOMI, conjunctivae pink, no scleral icterus. Ears and nose externally normal. Pharynx normal. NECK: No JVD. No carotid bruit, no thyromegaly, no adenopathy. CHEST: Clear to auscultation bilaterally. HEART: S1 and S2 normal. Edema ABDOMEN: Soft, nontender. Normal bowel sounds. MUSCULOSKELETAL: No gross joint deformity or swelling. NEURO: CN 2-12 intact. very mild right sided facial droop. expressive and receptive aphasia. SKIN: No rashes, petechiae, concerning changes PSYCHIATRIC: Mood euthymic. DISPOSITION: Home with family Time spent on discharge 37 minutes. Time spent discussing smoking cessation with patient: more than 10 minutes Status at Discharge Functional status at discharge: independent ambulation Overall status at discharge: patient is progressing back to baseline Time Spent with Patient Time attestation: Total time spent providing and/or coordinating discharge services: Time spent: Greater than 30 minutes Exam Const: Vital Signs, click to edit/add: Vital Signs - 24 hr 11/18/22 15:00 11/18/22 11:35 11/18/22 15:06 Temperature 99.0 F Pulse Rate 748 H Pulse Rate [Left R adial] 85 Pulse Rate [Pulse Oximeter] Respiratory Rate 14 Blood Pressure [Ri ght Arm] 137/92 H Pulse Oximetry 95 97 Oxygen Delivery Me thod Room Air Room Air 11/18/22 15:06 11/18/22 19:00 11/18/22 23:00 Temperature 98.8 F 98 F Pulse Rate 85 Pulse Rate [Left R adial] 83 87 Pulse Rate [Pulse Oximeter] Respiratory Rate 16 16 Blood Pressure [Ri ght Arm] 120/82 125/82 Pulse Oximetry 97 96 Oxygen Delivery Me thod Room Air Room Air 11/18/22 23:00 11/18/22 23:00 11/18/22 23:00 Temperature 98.4 F Pulse Rate Pulse Rate [Left R adial] 83 83 Pulse Rate [Pulse Oximeter] Respiratory Rate 16 16 16 Blood Pressure [Ri ght Arm] 128/85 Pulse Oximetry 96 95 Oxygen Delivery Mt thod Room Air Room Air 11/19/22 03:00 11/19/22 08:00 11/19/22 08:00 Temperature 97.7 F 97.4 F L Pulse Rate Pulse Rate [Left R adial] 77 Pulse Rate [Pulse Oximeter] 76 Respiratory Rate 16 16 Blood Pressure [Ri ght Arm] 126/95 H 134/98 H Pulse Oximetry 95 96 96 Oxygen Delivery Me od Room Air Room Air Room Air 11/19/22 07:25 Temperature Pulse Rate 64 Pulse Rate [Left R adial] Pulse Rate [Pulse Oximeter] Respiratory Rate Blood Pressure [Ri ght Arm] Pulse Oximetry Oxygen Delivery Me thod DS: Data Data Completed and Pending Labs on day of discharge: Preliminary micro results at discharge 11/17/22 21:55 Blood Culture - Preliminary Blood NO GROWTH AFTER 24 HOURS 11/17/22 21:47 Blood Culture - Preliminary Blood NO GROWTH AFTER 24 HOURS Discharge Plan Discharge Disposition: Home w/ Parent or Adult Date of Admission: 11/18/22 09:16 Attending Physician on Admission: Magalys Carmona Attending Provider on Discharge: Magalys Carmona Primary Care Provider: Provider,Not a Local Condition: Stable Anticipated Discharge Date/Time: 11/19/22 11:16 Discharge Medications: New atorvastatin [Lipitor] 40 mg Tablet 40 mg PO HS Qty: 90 0RF nicotine 14 mg/24 hr Patch 24 Hour 1 patch transdermal Q24H Qty: 30 0RF Nicotrol 10 mg Cartridge 10 mg inhalation Q1H PRNQty: 168 0RF aspirin 81 mg Tablet,Delayed Release (Dr/Ec) 81 mg PO DAILY Qty: 90 0RF Discontinued ibuprofen 100 - 200 mg PO Q8H PRN Discharge Orders: Discharge Order (Routine); Ordered 11/19/22 Ordered By: Magalys Carmona Additional Instructions: 1. stop smoking, absolute must do. I've sent patches and inhalers to help. Talk to your new PCP regarding hypnotism, medications (Wellbutrin, Chantix). 2. Alcohol in moderation 3. Measure your blood pressure daily (you can get an automatic cuff at any [facility], [facility], etc) - write it down or put it in your phone 4. Healthy lifestyle - heart healthy foods, low salt, go for a walk everyday 5. Atorvastatin and aspirin are your new daily medications 6. Follow up with primary care, speech therapy, and with neurology (your PCP will refer you) Activity Level: Activity as Tolerated Discharge Diet: Heart Healthy (2 gm sodium, low fat) Follow Up Appointments: [facility] [Provider Group] - 11/26/22 (establish care with any provider at the [facility] group either in [facility], or [place]. His choice. [facility] can refer him to a stroke neurologist for further care in the coming months. ) Speech Therapy, [facility] [Provider Group] - 11/21/22 (Speech Therapy for receptive and expressive aphasia secondary to stroke) Forms: Share Some Style Info Instructions Hospital Course: HOSPITALIST DISCHARGE SUMMARY ATTENDING PHYSICIAN: Magalys Carmona MD FINAL DIAGNOSIS: Acute left MCA cerebrovascular accident Tobacco use disorder HOSPITAL FOLLOWUP ISSUES: 1. Stroke neuro follow-up: Tele stroke instructed on aspirin, Lipitor. I would recommend outpatient evaluation and continuity of care with the stroke neurologist 2. Smoking cessation - PCP to address and reinforced 3. Occupational therapy - referred to [facility] for 2 to 3 times a week for his expressive aphasia REFERRALS WHILE ADMITTED: PT, OT, speech REFERRALS AFTER DISCHARGE: As above, stroke neuro, occupational therapy BRIEF HOSPITAL COURSE: Renaldo presented with expressive aphasia, receptive aphasia to our emergency room. With hypertensive. He was diagnosed with a left-sided MCA distribution subacute CVA. The onset of symptoms have been greater than 24 hours. We observed him for 24 hours. His MRI revealed no extension of his ischemic insult. He was evaluated by therapies he passed physical therapy and occupational therapy. His main symptoms of expressive, receptive aphasia and slight right facial droop and emotionally ability can be addressed as an outpatient. He was started on an aspirin load and continued on a baby aspirin daily. A statin was initiated. His biggest joshua will be smoking cessation. I spent time going over than need for this. I sent nicotine patches and inhalers to help with his cessation plan. He can follow-up with his PCP for Wellbutrin and or Chantix. SUBSTANTIVE NOTATIONS ON IMAGING, LAB, MICROBIOLOGY/PATHOLOGY STUDIES: CBCs unremarkable D-dimer was unremarkable A1c 5.48 Normal TSH Normal magnesium Undetectable troponin HDL 52, LDL 105, total cholesterol 175 Brain MRI 1. 39 millimeter late acute/early subacute transcortical infarct within the left middle frontal gyrus. No hemorrhagic transformation. This infarct does involve the left superior MCA territory. No recent ischemia elsewhere within the brain. 2. Small chronic infarcts bilateral thalami and right cerebellum. Overall mild chronic microvascular ischemic changes. DISCHARGE MEDICATIONS: See Reconciled list - SIGNIFICANT CHANGES: REVIEW OF SYSTEMS No new chest pain or dyspnea Pain controlled No voiding difficulties Tolerating diet challenge PHYSICAL EXAM: CONSTITUTIONAL: VITAL SIGNS: see record. HEENT: Normocephalic, atraumatic. PERRL, EOMI, conjunctivae pink, no scleral icterus. Ears and nose externally normal. Pharynx normal. NECK: No JVD. No carotid bruit, no thyromegaly, no adenopathy. CHEST: Clear to auscultation bilaterally. HEART: S1 and S2 normal. Edema ABDOMEN: Soft, nontender. Normal bowel sounds. MUSCULOSKELETAL: No gross joint deformity or swelling. NEURO: CN 2-12 intact. very mild right sided facial droop. expressive and receptive aphasia. SKIN: No rashes, petechiae, concerning changes PSYCHIATRIC: Mood euthymic. DISPOSITION: Home with family Time spent on discharge 37 minutes.
[2022-11-19 11:33] VITALS: BP 141/102; PULSE 64; RESP 16; TEMP 36.3
--- NOTE | 2022-11-19 14:53 | PC.NURSE ---
D/C: Patient A&O to person and time. Was unable to tell what city he was in. Pt has a flat affect but cooperative and appropriate. Tolerating meals. Ind in room. Refused a shower before discharge. Verbal d/c instructions were given to pt and family and written instructions sent with pt. All questions answered. IV removed with tip intact. Nicotine patch removed. D/c at 1350.
== END 2022-11-19 13:50 | disposition home or self-care (01) | DRG 66 ==
LOC: ED 21:41 → MEDSURG 23:39
PROVIDERS: Admitting Provider Internal Medicine; Emergency Provider Family Medicine; Visit Provider Family Medicine
DX: I63.9 Cerebral infarction, unspecified (principal); I69.320 Aphasia following cerebral infarction; I69.392 Facial weakness following cerebral infarction; R29.702 NIHSS score 2; I10 Essential (primary) hypertension; F17.210 Nicotine dependence, cigarettes, uncomplicated; Z96.642 Presence of left artificial hip joint
CPT/HCPCS: 36415; 70450; 70496; 70498; 70551; 80048; 80061; 80076; 80306; 81001; 82077; 82140; 82803; 83036; 83735; 83880; 84443; 84484; 85025; 85379; 86140; 87040; 87635; 92523; 93005; 93306; 94761; 97110; 97116; 97162; 99284; 99285; 99291; G0378; A9153; A9270; J1650; J2060; J7030; Q9967; S4990

== ENCOUNTER 2023-01-08 15:00 | Outpatient (RCR) | payer MEDICAID, SELFPAY ==
--- NOTE | 2022-11-26 10:28 | SLP.EVAL ---
Dr. Nova Please review, sign and return Thank you Radha Camarillo, TOBACCO SWEEPER TOBACCO SWEEPER Irinaal TOBACCO SWEEPER Vamshi Start: 11/24/22 16:50 Freq: Status: Active Protocol: Document 11/24/22 16:50 Izzy (Rec: 11/24/22 16:56 [facility] [id number]) E-signed By Radha Camarillo, KARLA, TOBACCO SWEEPER TOBACCO SWEEPER System Review History & Reason For Referral Type of Speech Evaluation Communication Evaluation Rehabilitation Order Evaluation and Treat Date of Order 11/21/22 Reason for Referral Aphasia Onset Date Of Patient's Problem 11/17/22 Medical Diagnosis CVA Treatment Diagnosis receptive and expressive aphasia Hearing Information Hearing Status appears within normal Vision Information Vision Status Patient wears glasses Patient Orientation Orientation & Mental Status Oriented TOBACCO SWEEPER Initial Assessment/POC Subjective Information Subjective/Pain Comment Patient independently ambulated to the therapy room. His mom is with him. Caregiver's Name Ольга - mom Assessment & Impression Assessment/Impression Patient is a 51 year old male referred for speech therapy following a stroke resulting in aphasia (expressive more than receptive but receptive issues too.) Patient was seen by this therapist when he was in the hospital. His communication skills have improved somewhat but are still impaired. 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 He graduated from high school but no schooling beyond that. He and his mom report that prior to the stroke he was a good conversationalist. AUDITORY COMPREHENSION Simple yes/no questions 9/10 Moderately complex yes/no questions 8/10 One-step directions 5/5 Two-step directions 4/5 Three-step directions 1/5 READING COMPREHENSION (all tasks needed extended time.) Simple multiple choice questions 9/10 Moderate level yes/no questions 9/10 Paragraph reading comprehension 5/8 VERBAL EXPRESSION Counting to 20 20/20 Days of the week 02/27 Completing sentences /8 Imitating phrases 8 Naming 6/6 Answering simple questions ( one word) 8 Producing sentences given a word 5/6 Defining words /10 Picture description 1-2 word phrases only. WRITTEN EXPRESSION Naming 6/6 Own name and address 100% but difficult to read writing. Written sentences given a word 1/3 IMPRESSIONS AND RECOMMENDATIONS Patient exhibits a moderate receptive and expressive aphasia (expressive more than receptive). Recommend direct outpatient speech therapy to improve language skills for safe return to daily living. Functional Limitations & Outcome/Goals Goals/Functional Outcomes COSMETIC CHEMIST GOALS Patient will be able to increase language skills to a functional level for return to daily living. SHORT TERM GOALS 1)Patient will be able to read short paragraph length material with 80% accuracy. 2)Patient will be able to describe simple pictures with sentences with 80% accuracy. 3)Patient will be able to write simple sentences to describe pictures with 80% accuracy. 4)Patient will be able to listen to and answer questions about a short passage with 80 % accuracy. Intervention Plan & Frequency Intervention Plan direct outpatient speech therapy Frequency 2x Per Week Duration 8 Weeks Coordination Of Plan Has Been Patient and family Communicated With Discharge Plan Patient Will be Discharged from Therapy Completion of LTG(s),Skills Plateau,Independently Progressing Therapist Signature & License # I Certify That Therapy Services Provided, Therapy Plan Established Therapist Signature & License Number Radha Camarillo, [facility]EEPER, # [id number] Certification Date Date of First Visit for Therapy 11/24/22 Date of Last Visit to Physician 11/19/22 Clinic Certification # #[id number] Recertification Due Date 01/22/23 Physician Signature Signature of Physician Indicates Treatment Plan,Certification Plan,Medically Needed Services Physician Signature & Date Required Please Sign/Date Here Speech/Language Pathology Billing Units Billing Units Eval Speech Sound & Lang Comp 1
== END 2023-05-08 23:59 | disposition home or self-care (01) ==
PROVIDERS: Visit Provider Family Medicine
DX: R47.01 Aphasia (principal); I63.512 Cerebral infarction due to unspecified occlusion or stenosis of left middle cerebral artery; Z51.89 Encounter for other specified aftercare
CPT/HCPCS: 92507; 92523; 97165; 97535

== ENCOUNTER 2025-04-28 23:28 | Emergency (ER) | payer MEDICAID, SELFPAY ==
--- OUTSIDE RECORDS SUMMARY | 2025-04-28 23:30 | XMS_ITS | Clinical Summary ---
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 07/01/2024 Active aspirin (ASA) 325 MG tablet Take 325 mg by mouth daily. 07/01/2024 Active cefadroxil (DURICEF) 500 MG capsule Take 500 mg by mouth 2 times daily. For 2 days 07/01/2024 Active celecoxib (CELEBREX) 200 MG capsule Take 200 mg by mouth 2 times daily. 07/01/2024 Active hydrOXYzine HCl (ATARAX) 10 MG tablet Take 10 mg by mouth 3 times daily as needed. 07/01/2024 Active omeprazole (PRILOSEC) [address] capsule Take 20 mg by mouth daily. 07/01/2024 Active oxyCODONE (ROXICODONE) 5 MG tablet Take 5-10 mg by mouth See Admin Instructions . Every 4 to 6 hours as needed 07/01/2024 Active STIMULANT LAXATIVE 8.6-50 MG tablet Take 1-2 tablets by mouth daily. 07/01/2024 Active Active Problems Problem Noted Date Diagnosed Date New onset seizure 07/04/2024 S/P hip replacement 10/01/2019 S/P total hip arthroplasty 09/30/2019 CARDIOVASCULAR SCREENING; LDL GOAL LESS THAN 160 06/23/2010 L5-S1 Herniation 04/16/2004 Immunizations Immunization Administration Dates Next Due TDAP Vaccine (Adacel) 09/17/2016 Family History Medical History Relation Comments Family History Negative Other Relation Status Comments Other Social History Tobacco Use Types Packs/Day Years Used Date Smoking Tobacco: Every Day Cigarettes 0.5 12 Smokeless Tobacco: Never Tobacco Cessation:Ready to Q uit: Not Asked; Counseling Given: Not Answered Comments:2-4 cigarettes per day Alcohol Use Standard Drinks/Week Comments Yes 0 (1 standard drink = 0.6 oz pur e alcohol) socially PHQ-2 Answer Date Recorded PHQ-2 Score 0 06/28/2024 Adolescent Education Answer Date Record ed Getting School Help Needed Not on file 06/07 Food Insecurity Answer Date Recorded Within the past 12 months, d id you worry that your food would run out before you got money to buy more? No 07/06/2024 Within the past 12 months, d id the food you bought just not last and you didn t have money to get more? No 07/06/2024 Housing Stability Answer Date Recorded Do you have housing? (Zebin g is defined as stable permanent housing and does not include staying outside in a car, in a tent, in an abandoned building, in an overnight senior living, or couch-surfing.) Yes 07/06/2024 Are you worried about losing your housing? No 07/06/2024 Financial Resource Strain Answer Date R ecorded Within the past 12 months, h ave you or your family members you live with been unable to get utilities (heat, electricity) when it was really needed? No 07/06/2024 Transportation Needs Answer Date Record ed Within the past 12 months, h as lack of transportation kept you from medical appointments, getting your medicines, non-medical meetings or appointments, work, or from getting things that you need? No 07/06/2024 Interpersonal Safety Answer Date Record ed Do you feel physically and e motionally safe where you currently live? Yes 07/06/2024 Within the past 12 months, h ave you been hit, slapped, kicked or otherwise physically hurt by someone? No 07/06/2024 Within the past 12 months, h ave you been humiliated or emotionally abused in other ways by your partner or ex-partner? No 07/06/2024 Sex and Gender Information Value Date Recorded Sex Assigned at Not on file Legal Sex Male 3:32 AM MANAGER HOME Gender Identity Not on file Sexual Orientation Not on file Last Filed Vital Signs Vital Sign Reading Time Taken Comments Blood Pressure 133/75 07/08/2024 8:37 AM MANAGER HOME Pulse 77 07/08/2024 8:37 AM MANAGER HOME Temperature 37 C (98.6 F) 07/08/2024 8:37 AM MANAGER HOME Respiratory Rate 16 07/08/2024 8:37 AM MANAGER HOME Oxygen Saturation 96% 07/08/2024 8:37 AM MANAGER HOME Inhaled Oxygen Concentration - - Weight 89.4 kg (197 lb) 07/05/2024 11:54 AM MANAGER HOME Height 182.9 cm (6') 07/05/2024 11:54 AM MANAGER HOME Body Mass Index 26.72 07/05/2024 11:54 AM MANAGER HOME Plan of Treatment Health Maintenance Due Date Last Done Comments ANNUAL REVIEW OF HM ORDERS 1970 CT COLONOGRAPHY 1970 FIT 1970 FLEX SIG 1970 NICOTINE/TOBACCO CESSATION COUNSELING Q 1 YR 1970 sDNA (Cologuard) 1970 YEARLY PREVENTIVE VISIT 1973 COLONOSCOPY 1980 COLORECTAL CANCER SCREENING 1980 HIV SCREENING 1985 HEPATITIS C SCREENING 1988 HEPATITIS B VACCINE (1 of 3 - 19+ 3-dose series) 1989 PNEUMOCOCCAL VACCINE 50+ YEARS (1 of 2 - PCV) 1989 LIPID 2010 LUNG CANCER SCREENING 2020 ZOSTER VACCINE (1 of 2) 2020 PHQ-2 (once per calendar year) 2024 06/28/2024 COVID-19 VACCINE ( - season) 2025 09/04/2021, 02/26/2021, 02/02/2021 INFLUENZA VACCINE (#1) 2025 DTAP/TDAP/TD VACCINE (2 - Td or Tdap) 09/17/2026 09/17/2016 DIABETES SCREENING 07/06/2027 07/06/2024, 1 09/04/2023, 07/04/2024, Additional history exists ADVANCE CARE PLANNING 06/28/2029 06/28/2024 HPV VACCINE (No Doses Required) Completed MENINGITIS VACCINE Aged Out No longer eligible based on patient's age to complete this topic Medical Devices Implanted Type Area Customer Service Driver Device Identifier Shelf Expiration Date Model / Serial / Lot Imp Scr Strk Low Profile Hex 6.5x30mm [id number] Implanted:Qty: 1 on 09/30/2019 by Salo Chris MD at [facility] Metallic Hardware/An chor Left: Hip [employer] [id number] 01/30/2024 7030-653 0 / / [id number] 6.5mm Low Profile Hex Scr 15mm Implanted:Qty: 1 on 09/30/2019 by Salo Chris MD at [facility] Metallic Hardware/An chor Left: Hip [employer] [id number] 11/03/2023 7030-651 5 / / [id number] Imp Liner Strk Trident X3 Poly 36mm 0deg Sz E 623-00-36e Implanted:Qty: 1 on 09/30/2019 by Salo Chris MD at [facility] Total Joint Component/I nsert Left: Hip [employer] [id number] 06/29/2024 623-00-3 6E / / [id number] Imp Stem Femoral Hip Strk Accolade Ii 127deg 4 [id number] Implanted:Qty: 1 on 09/30/2019 by Salo Chris MD at [facility] Total Joint Component/I nsert Left: Hip [employer] [id number] 12/14/2023 6721-043 5 / / [id number] Imp Head Femoral Strk Biolox Delta Ceramic 36mm +0mm Implanted:Qty: 1 on 09/30/2019 by Salo Chris MD at [facility] Total Joint Component/I nsert Left: Hip [employer] [id number] 07/11/2024 6570-0-1 36 / / [id number] Trident Ii Tritanium Clusterhole Acetabular Shell, 54mm, E Implanted:Qty: 1 on 09/30/2019 by Salo Chris MD at [facility] Left: Hip [employer] [id number] 07/09/2023 702-04-5 4E / / [id number] Procedures Procedure Name Priority Date/Time Associated Diagnosis Comments BASIC METABOLIC PANEL Routine 07/06/2024 5:36 AM MANAGER HOME from Last 3 Months or Most Recently Relevant to Health Maintenance Results * (ABNORMAL) Basic metabolic panel (07/06/2024 5:36 AM MANAGER HOME) Pathologist [facility] Sodium 137 135 - 145 mmol/L 07/06/2024 6:13 AM [facility] Potassium 4.2 3.4 - 5.3 mmol/L 07/06/2024 6:13 AM [facility] Chloride 102 98 - 107 mmol/L 07/06/2024 6:13 AM [facility] Carbon Dioxide (CO2) 23 22 - 29 mmol/L 07/06/2024 6:13 AM [facility] Anion Gap 12 7 - 15 mmol/L 07/06/2024 6:13 AM [facility] Urea Nitrogen 15.7 6.0 - 20.0 mg/dL 07/06/2024 6:13 AM [facility] Creatinine 0.82 0.67 - 1.17 mg/dL 07/06/2024 6:13 AM [facility] GFR Estimate >90 >60 mL/min/1.7 3m2 07/06/2024 6:13 AM [facility] Comment:eGFR calculated usin 2020 CKD-EPI equation. Calcium 8.5(L) 8.8 - 10.4 mg/dL 07/06/2024 6:13 AM [facility] Comment:Reference intervals for this test were updated on 03/08/2024 to reflect our healthy population more accurately. There may be differences in the flagging of prior results with similar values performed with this method. Those prior results can be interpreted in the context of the updated reference intervals. Glucose 171(H) 70 - 99 mg/dL 07/06/2024 6:13 AM [facility] Blood STRUCTURE OF RIGHT HAND / Unknown Venipuncture / Unknown 07/06/2024 5:36 AM MANAGER HOME 07/06/2024 5:52 AM MANAGER HOME us Adrian Ambrose MD LAB - BLOOD ORDERABLES Final Res ult [facility] [address] [facility] (1st floor, no room number) [place] [address], [facility] from Last 3 Months or Most Recently Relevant to Health Maintenance Insurance [facility] Advance Directives For more information, please contact: [phone] * Full Code (Latest Code Status on File) Date Activated Date Inactivated Comments 07/04/2024 9:32 PM 07/08/2024 4:15 PM All basic and advanced life-sustaining interventions are performed as appropriate Question Answer Comments Code status determined by: Discussion with roman nt/ legal decision maker * Full Code Date Activated Date Inactivated Comments 09/30/2019 4:24 PM 10/01/2019 5:11 PM Question Answer Comments Code status determined by: AD/POLST (pat ient/legal decision maker unavailable) Care Teams Metal Bonding Helper Relationship Specialty Start Date End Date [facility] [address] [place] [address] PCP - General 09/17/16 Marquise Sosa DO [address] [place] [id number] Assigned PCP 07/16/24
[2025-04-28 23:44] VITALS: BP 152/101; PULSE 80; RESP 18; TEMP 36.2; O2SAT 100; BMI 26.5
--- NOTE | 2025-04-28 23:46 | ED.GENADULT ---
HPI - General Adult General Date Seen: 04/28/25 <Mauricio Kelly DO - Last Filed: 04/30/25 11:00> Chief complaint: Neuro Symptoms/Altered Deficit <Mauricio Kelly DO - Last Filed: 04/30/25 11:00> Stated complaint: seizure <Mauricio Kelly DO - Last Filed: 04/30/25 11:00> Time Seen by Provider: 04/28/25 23:44 <Mauricio Kelly - Last Filed: 04/30/25 11:00> Source: patient <Mauricio Kelly DO - Last Filed: 04/30/25 11:00> Mode of arrival: ambulatory <Mauricio Kelly DO - Last Filed: 04/30/25 11:00> Limitations: no limitations <Mauricio Kelly DO - Last Filed: 04/30/25 11:00> History of Present Illness HPI narrative: Patient is a 54-year-old male presenting to the emergency department for concerns of seizure. States roughly 45 minutes prior to arrival he was walking into his house when he felt like he is unable to talk and his facial muscles were john. He was also felt like he was going to fall. He did not lose consciousness. He felt like he is back to normal after only a couple minutes. States he feels asymptomatic at this time. Unsure if both legs or only 1 leg was weak. States he had the same symptoms back in June of 2024 after a total hip replacement. Chart review shows on 07/06/2024 he was admitted at [facility] for a seizure. After he woke up after the the procedure he had an episode of left gaze palsy and a 15 second tonic clonic seizure. He then had another tonic clonic seizure of 30-45 seconds when he arrived to the emergency department. He was given Ativan and was postictal. It was determined that this was likely anesthesia withdrawal seizure. Back on 11/17/2022 he also had the CVA subacute stroke. At that time he was seen in this emergency department for decreased communication with the past 30 hours and family thought he was having increased stress. I went back in to check on him in a saw him slumped over on the couch. He was having difficulty with communication at that point. Was having some expressive aphasia and or dysarthria. At this time he feels back to his baseline. Denies chest pain, shortness of breath, headache, vision changes, abdominal pain. Is not currently on any antiseizure medications. States his only deficit from his previous stroke is word-finding issues <Mauricio Kelly DO - Last Filed: 04/30/25 11:00> Related Data Home medications: Home Medications ?Medication ?Instructions ?Recorded ?Confirmed nicotine 7 mg/24 hr daily 1 patch transdermal Q24H 11/21/22 11/21/22 transdermal patch Previous Rx's ?Medication ?Instructions ?Recorded aspirin 81 mg tablet,delayed 81 mg PO DAILY #90 tabs 11/19/22 release atorvastatin 40 mg tablet (Lipitor) 40 mg PO HS #90 tabs 11/19/22 aspirin 325 mg tablet 325 mg PO DAILY #90 tabs 04/29/25 rosuvastatin 10 mg tablet 10 mg PO DAILY #90 tabs 04/29/25 <Mauricio Kelly DO - Last Filed: 04/30/25 11:00> Allergies/adverse reactions: Allergies Allergy/AdvReac Type Severity Reaction Status Date / Time No Known Drug Allergies Allergy Verified 04/29/25 00:27 <Mauricio Kelly DO - Last Filed: 04/30/25 11:00> Review of Systems Status of ROS: Reports: 10 or more systems reviewed and unremarkable except as noted in History and below <Mauricio Kelly DO - Last Filed: 04/30/25 11:00> [facility] Medical History: Medical History Dyslipidemia ?E78.5 - Hyperlipidemia, unspecified (ICD-10) Osteoarthritis ?M19.90 - Unspecified osteoarthritis, unspecified site (ICD-10) Cigarette smoker one half pack a day or less ?F17.210 - Nicotine dependence, cigarettes, uncomplicated (ICD-10) History of lacunar cerebrovascular accident ?Z86.73 - Personal history of transient ischemic attack (TIA), and cerebral infarction without residual deficits (ICD-10) <Mauricio Kelly DO - Last Filed: 04/30/25 11:00> Surgical History: Surgical History History of hip replacement, total (2019) ?Z96.649 - Presence of unspecified artificial hip joint (ICD-10) <Mauricio Kelly DO - Last Filed: 04/30/25 11:00> Family History: Family History Father Myocardial infarction, Onset Age: 65 Prostate cancer <Mauricio Kelly DO - Last Filed: 04/30/25 11:00> Social History: Social History Narrative: 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, 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, 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[place], 21 yo son Half a pack a daily cigarette smoking 22 pack years 1 alcoholic drink a week No drug use No formal exercise but work is quite physical Highest level of school completed/degree received: 12th grade, no diploma Smoking Status: Current every day smoker What tobacco products do you use: cigarettes Smoking packs per day: 0.5 Smoking cigarettes per day: 10.0 Years smoked: 30 Smoking pack-years: 15.00 Do you use any of these nicotine containing products: None Second hand tobacco smoke exposure: No How often do you have a drink containing alcohol: never AUDIT-C Alcohol total score: 0 Non-prescribed substance use: marijuana (any form) Caffeine: Yes service: No <Mauricio Kelly DO - Last Filed: 04/30/25 11:00> Exam Narrative: Exam Narrative: Const: Well-nourished, Well-developed, in mild distress Eyes: PERRL, no conjunctival injection, and symmetrical lids HENT: Atraumatic external nose and ears. Moist mucous membranes. Neck: Symmetric, trachea midline, No thyromegaly. CVS: RRR, No murmurs or gallops. Peripheral pulses 2+ and equal in all extremities RESP: Unlabored respiratory effort. Clear to auscultation bilaterally. GI: Nontender/Nondistended, No rebound or guarding. MSK:Extremities w/o deformity, Normal Active ROM Skin: Warm, Dry. No rashes or lesions. Neuro: Normal Muscle tone, Cranial nerves 2-12 grossly intact, normal vnhq-gp-fwge, normal ephyfz-to-rhsb, normal gait, normal strength 5/5 upper lower extremities bilaterally, normal sensation upper and lower extremities bilaterally, normal rapid alternating movements. NIH stroke scale 0 Psych: Awake, Alert, & Oriented x3. Appropriate mood and affect. <Mauricio Kelly DO - Last Filed: 04/30/25 11:00> Const: Vital Signs, click to edit/add: Vital Signs - 24 hr 04/28/25 23:44 04/29/25 00:02 04/29/25 00:18 Temperature 97.2 F L Pulse Rate 74 70 Pulse Rate [Right Pulse Oximeter] 80 Respiratory Rate 18 Blood Pressure 147/98 H Blood Pressure [Ri ght Upper Arm] 152/101 H Pulse Oximetry 100 96 96 Oxygen Delivery Me thod Room Air 04/29/25 00:32 04/29/25 01:00 04/29/25 01:01 Temperature Pulse Rate 59 L 60 60 Pulse Rate [Right Pulse Oximeter] Respiratory Rate 12 12 12 Blood Pressure 145/97 H 139/98 H Blood Pressure [Ri ght Upper Arm] Pulse Oximetry 97 98 98 Oxygen Delivery Me thod <Mauricio Kelly DO - Last Filed: 04/30/25 11:00> Vital Signs, click to edit/add: Vital Signs - 24 hr 04/28/25 23:44 04/29/25 00:02 04/29/25 00:18 Temperature 97.2 F L Pulse Rate 74 70 Pulse Rate [Right Pulse Oximeter] 80 Respiratory Rate 18 Blood Pressure 147/98 H Blood Pressure [Ri ght Upper Arm] 152/101 H Pulse Oximetry 100 96 96 Oxygen Delivery Me thod Room Air 04/29/25 00:32 04/29/25 01:00 04/29/25 01:01 Temperature Pulse Rate 59 L 60 60 Pulse Rate [Right Pulse Oximeter] Respiratory Rate 12 12 12 Blood Pressure 145/97 H 139/98 H Blood Pressure [Ri ght Upper Arm] Pulse Oximetry 97 98 98 Oxygen Delivery Me thod <Fransisca Rashid MD - Last Filed: 04/29/25 01:43> Course Course ED Course: Dr. Rashid_: I inherited care from outgoing evening provider. Patient remains asymptomatic. I spoke with him a little more about his symptoms. This seems more like he had a very brief TIA where he was slightly off balance and felt like he had a harder time finding words when he was trying to talk to his CaT. The whole episode lasted about 1-2 minutes the patient recalls and he has been asymptomatic since. He has no vision changes, no nausea, no dizziness, no movement deficits. He feels like he is completely back to his baseline. I do a very basic repeat neuro exam and notice normal extraocular movements, pupils that are equal and reactive normal movement in all extremities, normal visual tracking. Speech feels normal for me. I did not appreciate any word-finding deficits on our conversation. Hand movements are tracking normally, no facial asymmetry. Neurologically does seem back to baseline. Per nursing team, he ambulated around the room into the bathroom without difficulty. He denies min some time talking about his stroke risk. It sounds like he was being treated with both aspirin and Plavix and a statin prior to stopping these about 2 months after his stroke a couple of years ago. He also continues to smoke. He is no longer symptomatic to the stroke, we discussed coming into the hospital for observation. I do admit to him that we would not be able to get an MRI tomorrow as that provider is unavailable. We would simply be watching him in the hospital under observation which is not well reimbursed by insurance but no treatment will be planned other than aspirin and a statin. He would prefer to start those medications and monitor at home which certainly is reasonable since he has returned to neurological baseline. We can do things to dramatically reduce his stroke risk by restarting a statin and a full-dose aspirin. He is willing to do these things a 5 resided a prescription. I have elected to give him a whole year supply even though I think he may not follow-up. We also discussed that smoking cessation would dramatically reduce his stroke risk as well. We also spent some time discussing the fact that there are medications that can be used to help break up a stroke like thrombolytics. It is really important that he comes in within an hour of his symptoms starting if he has persistent neurological changes in the future. Unfortunately, he is pretty high risk for another stroke. I have asked that he follow up with primary care provider in a week or 2 to have the cholesterol rechecked. Will give dose of statin and full-dose aspirin here in the ED prior to discharge. He reports that he would return to the ED if he had worsening or any return of neurological symptoms. Written instructions provided, prescriptions provided. All questions answered. <Fransisca Rashid MD - Last Filed: 04/29/25 01:43> Vital Signs Vital signs: Initial Vital Signs Temperature 97.2 F L 04/28/25 23:44 Temperature Source Temporal Artery Scan 04/28/25 23:44 Pulse Rate 80 04/28/25 23:44 Respiratory Rate 18 04/28/25 23:44 Blood Pressure 152/101 H 04/28/25 23:44 Blood Pressure Mean 118 H 04/28/25 23:44 Blood Pressure Position High-Fowlers 04/28/25 23:44 Pulse Oximetry 100 04/28/25 23:44 Oxygen Delivery Method Room Air 04/28/25 23:44 Vital Signs Temperature 97.2 F L 04/28/25 23:44 Pulse Rate 80 04/28/25 23:44 Respiratory Rate 18 04/28/25 23:44 Blood Pressure 152/101 H 04/28/25 23:44 Pulse Oximetry 100 04/28/25 23:44 Oxygen Delivery Method Room Air 04/28/25 23:44 Temperature 97.2 F L 04/28/25 23:44 Pulse Rate 60 04/29/25 01:01 Respiratory Rate 12 04/29/25 01:01 Blood Pressure 139/98 H 04/29/25 01:01 Pulse Oximetry 98 04/29/25 01:01 Oxygen Delivery Method Room Air 04/28/25 23:44 <Mauricio Kelly DO - Last Filed: 04/30/25 11:00> Initial Vital Signs Temperature 97.2 F L 04/28/25 23:44 Temperature Source Temporal Artery Scan 04/28/25 23:44 Pulse Rate 80 04/28/25 23:44 Respiratory Rate 18 04/28/25 23:44 Blood Pressure 152/101 H 04/28/25 23:44 Blood Pressure Mean 118 H 04/28/25 23:44 Blood Pressure Position High-Fowlers 04/28/25 23:44 Pulse Oximetry 100 04/28/25 23:44 Oxygen Delivery Method Room Air 04/28/25 23:44 Vital Signs Temperature 97.2 F L 04/28/25 23:44 Pulse Rate 80 04/28/25 23:44 Respiratory Rate 18 04/28/25 23:44 Blood Pressure 152/101 H 04/28/25 23:44 Pulse Oximetry 100 04/28/25 23:44 Oxygen Delivery Method Room Air 04/28/25 23:44 Temperature 97.2 F L 04/28/25 23:44 Pulse Rate 60 04/29/25 01:01 Respiratory Rate 12 04/29/25 01:01 Blood Pressure 139/98 H 04/29/25 01:01 Pulse Oximetry 98 04/29/25 01:01 Oxygen Delivery Method Room Air 04/28/25 23:44 <Fransisca Rashid MD - Last Filed: 04/29/25 01:43> Medications Administered Medications: Discontinued Medications Generic Name Dose Route Start Last Admin Trade Name Freq PRN Reason Stop Dose Admin Aspirin 324 mg 04/29/25 01:22 04/29/25 01:29 Aspirin 81 Mg Tab.Chew PO 04/29/25 01:23 324 mg ONCE ONE Administration Rosuvastatin Calcium 10 mg 04/29/25 01:22 04/29/25 01:29 Rosuvastatin Calcium 10 Mg Tablet PO 04/29/25 01:23 10 mg ONCE ONE Administration <Mauricio Kelly DO - Last Filed: 04/30/25 11:00> Discontinued Medications Generic Name Dose Route Start Last Admin Trade Name Freq PRN Reason Stop Dose Admin Aspirin 324 mg 04/29/25 01:22 04/29/25 01:29 Aspirin 81 Mg Tab.Chew PO 04/29/25 01:23 324 mg ONCE ONE Administration Rosuvastatin Calcium 10 mg 04/29/25 01:22 04/29/25 01:29 Rosuvastatin Calcium 10 Mg Tablet PO 04/29/25 01:23 10 mg ONCE ONE Administration <Fransisca Rashid MD - Last Filed: 04/29/25 01:43> Medical Decision Making [facility] Narrative Medical decision making narrative: Patient is a 54-year-old male presenting for concerns of a seizure. Based on his description in history this is not sound like a seizure. Review of notes in [facility] show he had a tonic clonic seizures with a postictal state and what he is describing does not sound like that occurred. He is not postictal. This seems unlikely to be a seizure. Also at that time they believed was due to withdrawal of anesthesia and he has had no recent anesthesia. With the dysarthria and weakness there is concern for a TIA. He is back to baseline so a stroke code was not called as no intervention will be done. There is no signs of a large vessel occlusion on my exam. His NIH stroke scale is 0. Will do CT, CTA head and neck along with CBC, BMP, magnesium. EKG reviewed independently by myself acute concerning abnormalities. <Mauricio Kelly DO - Last Filed: 04/30/25 11:00> Lab Data Lab results reviewed: Yes I reviewed the patient's lab results <Fransisca Rashid MD - Last Filed: 04/29/25 01:43> Lab results narrative: Labs are reassuring. No signs of ID, electrolyte abnormality, abnormal creatinine, abnormal glucose, or infection. <Fransisca Rashid MD - Last Filed: 04/29/25 01:43> Labs: Lab Results 04/28/25 04/29/25 Range/Units 23:50 00:00 WBC 8.17 (4.50-11.00) K/uL RBC 5.17 (4.30-5.90) m/uL Hgb 15.4 (13.5-17.5) gm/dL Hct 47.7 (37.0-53.0) % MCV 92 (80-100) fL MCH 30 (26-34) pg MCHC 32 (32-36) gm/dL RDW Coeff of Gracie 13.1 (11.5-15.5) % Plt Count 240 (140-440) K/uL Neut % (Auto) 51.9 (42.0-72.0) % Lymph % (Auto) 36.2 (20-44) % Mason % (Auto) 9.1 (0.0-11.0) % Eos % (Auto) 1.8 (0.0-7.0) % Baso % (Auto) 0.6 (0.0-3.0) % Neut # (Auto) 4.24 (1.7-7.0) K/uL Lymph # (Auto) 2.96 H (0.90-2.90) K/uL Mason # (Auto) 0.70 (0.00-0.90) K/UL Eos # (Auto) 0.15 (0.00-0.50) K/uL Baso # (Auto) 0.05 (0.00-0.30) K/uL Abs Immat Gran (auto) 0.03 (0.00-0.30) K/uL Imm/Tot Granulo (auto) 0.4 % Sodium 139 (135-149) mmol/L Potassium 4.4 (3.6-5.1) mmol/L Chloride 104 (96-114) mmol/L Carbon Dioxide 30 (20-32) mmol/L Anion Gap 5 L (7-15) mEq/L BUN 18 (7-30) mg/dL Creatinine 1.0 (0.5-1.5) mg/dL Estimated Creat Clear 89.94 Estimated GFR 89 ml/min Glucose 101 (60-115) mg/dL Calcium 9.1 (8.4-10.6) mg/dL Magnesium 2.2 (1.5-2.6) mg/dL POC Troponin I 0.01 (0.01-0.04) ng/ml <Mauricio Kelly, DO - Last Filed: 04/30/25 11:00> Lab Results 04/28/25 04/29/25 Range/Units 23:50 00:00 WBC 8.17 (4.50-11.00) K/uL RBC 5.17 (4.30-5.90) m/uL Hgb 15.4 (13.5-17.5) gm/dL Hct 47.7 (37.0-53.0) % MCV 92 (80-100) fL MCH 30 (26-34) pg MCHC 32 (32-36) gm/dL RDW Coeff of Gracie 13.1 (11.5-15.5) % Plt Count 240 (140-440) K/uL Neut % (Auto) 51.9 (42.0-72.0) % Lymph % (Auto) 36.2 (20-44) % Mason % (Auto) 9.1 (0.0-11.0) % Eos % (Auto) 1.8 (0.0-7.0) % Baso % (Auto) 0.6 (0.0-3.0) % Neut # (Auto) 4.24 (1.7-7.0) K/uL Lymph # (Auto) 2.96 H (0.90-2.90) K/uL Mason # (Auto) 0.70 (0.00-0.90) K/UL Eos # (Auto) 0.15 (0.00-0.50) K/uL Baso # (Auto) 0.05 (0.00-0.30) K/uL Abs Immat Gran (auto) 0.03 (0.00-0.30) K/uL Imm/Tot Granulo (auto) 0.4 % Sodium 139 (135-149) mmol/L Potassium 4.4 (3.6-5.1) mmol/L Chloride 104 (96-114) mmol/L Carbon Dioxide 30 (20-32) mmol/L Anion Gap 5 L (7-15) mEq/L BUN 18 (7-30) mg/dL Creatinine 1.0 (0.5-1.5) mg/dL Estimated Creat Clear 89.94 Estimated GFR 89 ml/min Glucose 101 (60-115) mg/dL Calcium 9.1 (8.4-10.6) mg/dL Magnesium 2.2 (1.5-2.6) mg/dL POC Troponin I 0.01 (0.01-0.04) ng/ml <Fransisca Rashid MD - Last Filed: 04/29/25 01:43> Imaging Data CT angio head: Attestation: I have reviewed the pertinent imaging results. <Fransisca Rashid MD - Last Filed: 04/29/25 01:43> My impression: No large vessel blockage <Fransisca Rashid MD - Last Filed: 04/29/25 01:43> Radiologist's impression: Findings: Preliminary report, full report to follow. Impression: CTA head: No acute abnormality appreciated. CTA neck: No acute abnormality appreciated. Dictated by Mahin Tilley MD @ 04/29/2025 1:06:00 AM Read by:?Mahin Tilley MD @04/29/2025 1:06:06 AM <Fransisca Rashid MD - Last Filed: 04/29/25 01:43> CT scan - head: Attestation: I have reviewed the pertinent imaging results. <Fransisca Rashid MD - Last Filed: 04/29/25 01:43> My impression: No new intracranial hemorrhage. Some old degenerative changes, no evidence of obvious new infarct <Fransisca Rashid MD - Last Filed: 04/29/25 01:43> Radiologist's impression: Findings: Brain: No acute hemorrhage. No acute infarct. No significant mass effect or midline shift. No gross evidence of a mass lesion or cerebral edema. Chronic appearing left frontal infarct. Age-indeterminate but chronic appearing bilateral thalamic infarcts. Chronic right cerebellar infarct. [id number] chronic senescent disease. Ventricles: No acute abnormality appreciated. Orbits, sinuses, mastoids: No acute abnormality appreciated. Calvarium and soft tissues: No acute abnormality appreciated. Impression: Chronic infarcts and senescent changes. There are chronic appearing though age-indeterminate bilateral thalamic infarcts. No definite acute abnormality appreciated. MRI would be recommended if there is continued clinical concern for acute pathology. <Fransisca Rashid MD - Last Filed: 04/29/25 01:43> ECG Data Attestation: I personally reviewed and interpreted this ECG as follows: <Mauricio Kelly DO - Last Filed: 04/30/25 11:00> Prior ECG tracings: available for review <Mauricio Kelly DO - Last Filed: 04/30/25 11:00> Interpretation: Normal sinus rhythm with a rate of 71 beats minute, normal intervals, normal axis, no ST or T-wave abnormalities. Appears similar previous EKG on file <Mauricio Kelly DO - Last Filed: 04/30/25 11:00> Discharge Plan Discharge Clinical Impression: Brain TIA <Mauricio Kelly DO - Last Filed: 04/30/25 11:00> Patient Disposition: Home, Self-Care <Mauricio Kelly DO - Last Filed: 04/30/25 11:00> Condition: Improved <Mauricio Kelly DO - Last Filed: 04/30/25 11:00> Instructions: Transient Ischemic Attack (ED) <Mauricio Kelly DO - Last Filed: 04/30/25 11:00> Additional Instructions: As we discussed, the episode that you had tonight is known as a TIA, called in medicine at transient ischemic attack. By definition, these are many strokes that correct themselves. They are a sign of a partial blockage in the brain that will need ongoing treatment. Since there are no persistent neurological deficits, there is nothing that we need to send you up to [facility] to have opened up. Should a similar episode happen in the future, it is important that your coming into the hospital within about an hour. There is medication that we can use to bust up clots in the brain if there is a full blockage and persistent symptoms of stroke. There is no evidence of a seizure tonight. There are things that can be done to reduce your risk of stroke and further episodes. Unfortunately, you are very high risk for another stroke. The most important thing that you could do to reduce her risk of stroke is to quit smoking. I fully respect that that is difficult to do. The next most important thing is that you half to be taking aspirin 325 mg every day. Tiio-jyf-[id number] is fine. This is also known as a ?full dose aspirin?. I also recommend that we start you on a cholesterol medication, this will help stabilize any plaques inside the brain and reduce your risk of these rupturing. There are other interventions that can be done to reduce your risk of stroke as well, but these are the most important basics that we should start with 1st. I would like for you to call and make an appointment with 1 of our primary care doctors to have your cholesterol rechecked and to determine if you continue to have persistent spells like this, if we should add Plavix back in which is likely what you took for a couple of months a few years ago or if we need to increase her cholesterol medication or potentially start blood pressure lowering medications. Please make a follow-up appointment in the next 1-2 weeks. It is typically helpful if you bring this paperwork with you so that they can navigate the appointment faster. <Mauricio Kelly DO - Last Filed: 04/30/25 11:00> Activity Level: No Restrictions <Mauricio Kelly DO - Last Filed: 04/30/25 11:00> No Restrictions <Fransisca Rashid MD - Last Filed: 04/29/25 01:43> Discharge Diet: Regular <Mauricio Kelly DO - Last Filed: 04/30/25 11:00> Regular <Fransisca Rashid MD - Last Filed: 04/29/25 01:43> Prescriptions: New rosuvastatin 10 mg tablet 10 mg PO DAILY Qty: 90 4RF aspirin 325 mg tablet 325 mg PO DAILY Qty: 90 4RF No Action nicotine 7 mg/24 hr patch 24 hour 1 patch transdermal Q24H atorvastatin [Lipitor] 40 mg Tablet 40 mg PO HS Qty: 90 0RF aspirin 81 mg Tablet,Delayed Release (Dr/Ec) 81 mg PO DAILY Qty: 90 0RF <Mauricio Kelly DO - Last Filed: 04/30/25 11:00> Follow Up/Referrals: Provider,Not a Local [Primary Care Provider, Family Practice] <Mauricio Kelly DO - Last Filed: 04/30/25 11:00> Stand Alone Forms: [facility] Info Instructions <Mauricio Kelly DO - Last Filed: 04/30/25 11:00>
[2025-04-29 00:02] VITALS: BP 147/98; PULSE 74; O2SAT 96
--- OUTSIDE RECORDS SUMMARY | 2025-04-29 00:03 | XMS_ITS | Clinical Summary ---
Author Organization [facility] Address [address] [place] [id number] Care Team Providers Care Primary Therapist Name Role Phone [facility] Primary Ca re Provider Marquise Sosa DO Unavailable [phone] Allergies Active Allergy Reactions Criticality Noted [...] in an abandoned building, in an overnight skilled nursing, or couch-surfing.) Yes 07/06/2024 Are you worried [...] on file Legal Sex Male 3:32 AM RAG ROOM SUPERVISOR Gender Identity Not on file Sexual Orientation Not on file Last Filed Vital Signs Vital Sign Reading Time Taken Comments Blood Pressure 133/75 07/08/2024 8:37 AM RAG ROOM SUPERVISOR Pulse 77 07/08/2024 8:37 AM RAG ROOM SUPERVISOR Temperature 37 C (98.6 F) 07/08/2024 8:37 AM RAG ROOM SUPERVISOR Respiratory Rate 16 07/08/2024 8:37 AM RAG ROOM SUPERVISOR Oxygen Saturation 96% 07/08/2024 8:37 AM RAG ROOM SUPERVISOR Inhaled Oxygen Concentration - - Weight 89.4 kg (197 lb) 07/05/2024 11:54 AM RAG ROOM SUPERVISOR Height 182.9 cm (6') 07/05/2024 11:54 AM RAG ROOM SUPERVISOR Body Mass Index 26.72 07/05/2024 11:54 AM RAG ROOM SUPERVISOR Plan of Treatment Health Maintenance Due Date [...] this topic Medical Devices Implanted Type Area Lead Operator Device Identifier Shelf Expiration Date Model / Serial / Lot Imp Scr Strk Low Profile Hex 6.5x30mm [id number] Implanted:Qty: 1 on 09/30/2019 by Salo Chris MD at [facility] Metallic Hardware/An chor Left: Hip [employer] [id number] 01/30/2024 7030-653 0 / / [id number] 6.5mm Low Profile Hex Scr 15mm Implanted:Qty: 1 on 09/30/2019 by Salo Chris MD at [facility] Metallic Hardware/An chor Left: Hip [employer] [id number] 11/03/2023 7030-651 5 / / [id number] Imp Liner Strk Trident X3 Poly 36mm 0deg Sz E 623-00-36e Implanted:Qty: 1 on 09/30/2019 by Salo Chris MD at [facility] Total Joint Component/I nsert Left: Hip [employer] [id number] 06/29/2024 623-00-3 6E / / [id number] Imp Stem Femoral Hip Strk Accolade Ii 127deg 4 [id number] Implanted:Qty: 1 on 09/30/2019 by Salo Chris MD at [facility] Total Joint Component/I nsert Left: Hip [employer] [id number] 12/14/2023 6721-043 5 / / [id number] Imp Head Femoral Strk Biolox Delta Ceramic 36mm +0mm Implanted:Qty: 1 on 09/30/2019 by Salo Chris MD at [facility] Total Joint Component/I nsert Left: Hip [employer] [id number] 07/11/2024 6570-0-1 36 / / [id number] Trident Ii Tritanium Clusterhole Acetabular Shell, 54mm, E Implanted:Qty: 1 on 09/30/2019 by Salo Chris MD at [facility] Left: Hip [employer] [id number] 07/09/2023 702-04-5 4E / / [id number] Procedures Procedure Name Priority Date/Time Associated Diagnosis Comments BASIC METABOLIC PANEL Routine 07/06/2024 5:36 AM RAG ROOM SUPERVISOR from Last 3 Months or Most Recently Relevant to Health Maintenance Results * (ABNORMAL) Basic metabolic panel (07/06/2024 5:36 AM RAG ROOM SUPERVISOR) Pathologist [facility] Sodium 137 135 - 145 mmol/L 07/06/2024 6:13 AM RAG ROOM SUPERVISOR LABORATORY Potassium 4.2 3.4 - 5.3 mmol/L 07/06/2024 6:13 AM [facility] Chloride 102 98 - 107 mmol/L 07/06/2024 6:13 AM [facility] Carbon Dioxide (CO2) 23 22 - 29 mmol/L 07/06/2024 6:13 AM [facility] Anion Gap 12 7 - 15 mmol/L 07/06/2024 6:13 AM [facility] Urea Nitrogen 15.7 6.0 - 20.0 mg/dL 07/06/2024 6:13 AM [facility] Creatinine 0.82 0.67 - 1.17 mg/dL 07/06/2024 6:13 AM [facility] GFR Estimate >90 >60 mL/min/1.7 3m2 07/06/2024 6:13 AM [facility] Comment:eGFR calculated usin 2020 CKD-EPI equation. Calcium 8.5(L) 8.8 - 10.4 mg/dL 07/06/2024 6:13 AM [facility] Comment:Reference intervals for this test were updated on 03/08/2024 to reflect our healthy population more accurately. There may be differences in the flagging of prior results with similar values performed with this method. Those prior results can be interpreted in the context of the updated reference intervals. Glucose 171(H) 70 - 99 mg/dL 07/06/2024 6:13 AM [facility] Blood STRUCTURE OF RIGHT HAND / Unknown Venipuncture / Unknown 07/06/2024 5:36 AM RAG ROOM SUPERVISOR 07/06/2024 5:52 AM RAG ROOM SUPERVISOR us Adrian Ambrose MD LAB - BLOOD ORDERABLES Final Res ult [facility] [address] [facility] (1st floor, no room number) [place] [address], [facility] from Last 3 Months or Most Recently Relevant to Health Maintenance Insurance [facility] Advance Directives For more information, please contact: [phone] * Full Code (Latest Code Status on [...] (pat ient/legal decision maker unavailable) Care Teams Primary Therapist Relationship Specialty Start Date End Date [facility] [address] [place] [address] PCP - General 09/17/16 Marquise Sosa DO [address] [place] [id number] Assigned PCP 07/16/24
[2025-04-29 00:05] LABS: Hematocrit 47.7 % (37.0-53.0); Hemoglobin* 15.4 gm/dL (13.5-17.5); Immature Granulocytes Abs Auto 0.03 K/uL (0.00-0.30); Immature Granulocytes Pct Auto 0.4 %; Lymphocytes Absolute Auto 2.96 K/uL (0.90-2.90); Mean Corpuscular HGB Conc 32 gm/dL (32-36); Mean Corpuscular Hemoglobin 30 pg (26-34); Mean Corpuscular Volume 92 fL (80-100); RDW Coefficient of Variation % 13.1 % (11.5-15.5); Red Blood Count 5.17 m/uL (4.30-5.90); White Blood Count* 8.17 K/uL (4.50-11.00)
[2025-04-29 00:09] LABS: Slide Review Reflex No
[2025-04-29 00:11] LABS: Troponin, Point-of-Care* 0.01 ng/ml (0.01-0.04)
[2025-04-29 00:12] LABS: Chloride* 104 mmol/L (96-114)
[2025-04-29 00:13] LABS: Potassium* 4.4 mmol/L (3.6-5.1); Sodium* 139 mmol/L (135-149)
[2025-04-29 00:16] LABS: Anion Gap 5 mEq/L (7-15); Blood Urea Nitrogen* 18 mg/dL (7-30); Calcium* 9.1 mg/dL (8.4-10.6); Carbon Dioxide* 30 mmol/L (20-32); Creatinine* 1.0 mg/dL (0.5-1.5); Est. Creatinine Clearance* 89.94; Estimated Glomerular Filt Rate 89 ml/min; Glucose* 101 mg/dL (60-115)
[2025-04-29 00:18] VITALS: PULSE 70; O2SAT 96
[2025-04-29 00:32] VITALS: BP 145/97; PULSE 59; RESP 12; O2SAT 97
[2025-04-29 01:00] VITALS: PULSE 60; RESP 12; O2SAT 98
[2025-04-29 01:01] VITALS: BP 139/98; PULSE 60; RESP 12; O2SAT 98
[2025-04-29] MEDS: ASPIRIN 81 MG TAB.CHEW 324 MG PO (01:29)
[2025-04-29] MEDS: ROSUVASTATIN CALCIUM 10 MG TABLET PO (01:29)
--- NOTE | 2025-04-29 23:52 | CT_ITS ---
Patient: HARPAL CLARKE Facility:?[facility] Patient ID:?[id number] Site Patient ID:?[id number]. Site :?[id number] Study:?CT-Head Angio 95CC ISOVUE 370-04/29/2025 12:23:41 AM Ordering Physician:Thomas Martínez Final Report: INDICATION: Acute stroke. TECHNIQUE: CTA head with contrast bolus tracking, 3D angiographic rendering using maximum intensity projection (MIP) and images permanently archived. CTA neck with contrast bolus tracking, 3D angiographic rendering using maximum intensity projection (MIP) and images permanently archived. FINDINGS: CTA head: There is normal opacification of the intracranial vasculature. There is no large vessel occlusion. No aneurysm is identified. CTA neck: There is no carotid or vertebral artery stenosis or dissection. IMPRESSION: Unremarkable CTA head and neck. Please note that all CT scans at this facility use dose modulation, iterative reconstruction, and/or weight-based dosing when appropriate to reduce radiation dose to as low as reasonably achievable. Dictated by Jayson Baez MD @ 04/29/2025 10:19:55 AM Signed by:?Jayson Baez MD @04/29/2025 10:19:55 AM (Electronic Signature)
--- NOTE | 2025-04-29 23:52 | CRLHL7_ITS ---
For Patients: As a result of the Century Cures Act, medical imaging exams and procedure reports are released immediately into your electronic medical record. You may view this report before your referring provider. If you have questions, please contact your health care provider. Indication: Episode of weakness and dysphagia, history of seizure and CVA Technique: Noncontrast CT through the head with multiplanar reformats Comparison: None Findings: Brain: No acute hemorrhage. No acute infarct. No significant mass effect or midline shift. No gross evidence of a mass lesion or cerebral edema. Chronic appearing left frontal infarct. Age-indeterminate but chronic appearing bilateral thalamic infarcts. Chronic right cerebellar infarct. [id number]-[id number] chronic senescent disease. Ventricles: No acute abnormality appreciated. Orbits, sinuses, mastoids: No acute abnormality appreciated. Calvarium and soft tissues: No acute abnormality appreciated. Impression: Chronic infarcts and senescent changes. There are chronic appearing though age-indeterminate bilateral thalamic infarcts. No definite acute abnormality appreciated. MRI would be recommended if there is continued clinical concern for acute pathology. Please note that all CT scans at this facility use dose modulation, iterative reconstruction, and/or weight-based dosing when appropriate to reduce radiation dose to as low as reasonably achievable. Dictated by Mahin Tilley MD @ 04/29/2025 1:03:34 AM (Electronically Signed)
== END 2025-04-29 01:38 | disposition home or self-care (01) ==
PROVIDERS: Student in an Organized Health Care Education/Training Program; Emergency Provider Family Medicine
DX: G45.9 Transient cerebral ischemic attack, unspecified (principal)
CPT/HCPCS: 36415; 70450; 70496; 70498; 80048; 83735; 84484; 85025; 93005; 99284; 99285; A9270; Q9967